=== PATIENT | female | born 1935 | race Caucasian/White ===

== ENCOUNTER 2018-09-12 06:34 | Inpatient (IN) | payer MEDICARE, BC ==
[2018-09-12 07:16] LABS: #Basophils 0.1 thou/uL (0.0-0.2); #Eosinphils 0.3 thou/uL (0.0-0.7); #Monocytes 0.7 thou/uL (0.11-0.59); #Neutrophils 6.9 thou/uL (1.40-6.50); %Basophils 0.7 % (0.0-1.0); %Eosinophils 2.7 % (0.0-10.0); %Lymphocytes 20.1 % (21.0-51.0); %Monocytes 7.3 % (0.0-10.0); %Neutrophils 69.2 % (42.0-75.0); Hemoglobin 14.3 g/dL (12.0-16.0); Mean Corpuscular HGB CONC 33.3 g/dL (32.0-36.0); Mean Corpuscular Hemoglobin 30.6 pg (27.0-31.0); Mean Corpuscular Volume 91.9 fL (78.0-98.0); Mean Platelet Volume 7.8 fL (7.4-10.4); Platelet Count 247 thou/uL (130-400); Red Blood Cell (RBC) Count 4.67 mill/uL (4.20-5.40); White Blood Cell (WBC) Count 9.9 thou/uL (4.8-10.8)
[2018-09-12 07:22] LABS: PTT 29.6 SEC (22.9-36.1); Prothrombin Time 13.6 SEC (12.0-14.7)
[2018-09-12 07:37] LABS: ALT (SGPT) 18 U/L (8-55); AST (SGOT) 17 U/L (5-34); Alkaline Phosphatase 83 U/L (40-150); Anion Gap 9 mmol/L (10-20); BUN (Urea Nitrogen) 20 mg/dL (9.8-20.1); Bilirubin, Total 0.6 mg/dL (0.2-1.2); CK (CPK) 23 U/L (29-168); Calc. Creatinine Clearance 0 mL/min (70-130); Calcium 9.3 mg/dL (7.8-10.44); Carbon Dioxide 28 mmol/L (23-31); Chloride 107 mmol/L (98-107); Estimated GFR-MDRD 77; Globulin 2.6 g/dL (2.4-3.5); Glucose 99 mg/dL (83-110); Potassium 3.7 mmol/L (3.5-5.1); Protein, Total 6.6 g/dL (6.0-8.3); Sodium 140 mmol/L (136-145)
[2018-09-12 07:57] LABS: CKMB 0.8 ng/mL (0-6.6)
[2018-09-12 11:12] VITALS: BMI 30.1
[2018-09-12] MEDS ORDERED: Dextrose 5 % And 0.9 % NaCl 1,000 ML IV SCH (11:15)
[2018-09-12] MEDS ORDERED: Ondansetron ODT 4 MG TAB PO PRN (13:54)
[2018-09-12] MEDS ORDERED: hydrALAZINE 20 MG/ML VIAL SLOW IVP PRN (13:54)
[2018-09-12] MEDS ORDERED: Acetaminophen 500 MG TAB PO PRN (13:54)
[2018-09-12] MEDS ORDERED: Ondansetron PF 4 MG/2 ML Vial IVP PRN (13:54)
[2018-09-12 15:01] LABS: Hemoglobin 13.8 g/dL (12.0-16.0); Platelet Count 230 thou/uL (130-400)
[2018-09-12] MEDS: Sodium Chloride 0.9% 1,000 ML IV SCH (15:16)
[2018-09-12 15:28] LABS: Troponin I 0.089 ng/mL (< 0.028)
[2018-09-12 19:26] LABS: Troponin I 0.095 ng/mL (< 0.028)
[2018-09-12] MEDS ORDERED: GoLYTELY 4,000 ml Bottle PO SCH (20:45)
[2018-09-12] MEDS ORDERED: Escitalopram Oxalate 10 mg Tablet PO SCH (21:00)
[2018-09-12] MEDS ORDERED: Pantoprazole 40 MG VIAL IVP SCH (21:00)
[2018-09-12] MEDS ORDERED: hydrALAZINE 20 MG/ML VIAL SLOW IVP SCH (21:15)
--- NOTE | 2018-09-12 23:16 | HP ---
PRIMARY CARE PROVIDER: Kirk Valencia MD CHIEF COMPLAINT: Blood per rectum. HISTORY OF PRESENT ILLNESS: This is an 82-year-old female who presents to [facility] Emergency Department complaining of bright red blood per rectum when going to the restroom this morning. The patient felt the urge to defecate with gas and bloating and went to the restroom, noting bright red blood in the toilet. The patient denies any specific abdominal pain, fever, chills, left lower quadrant discomfort, or prior similar episodes. The patient does state she has had intermittent difficulty with hemorrhoids and has used Anusol in the past. The patient denied any specific increasing difficulty with hemorrhoids, and states she has been on MiraLAX over the last 4 weeks. The patient denies any specific weight loss, but does admit to some weight gain. The patient is unable to quantify the exact number. The patient denied any recent trauma or injury. The patient does admit that she takes aspirin 81 mg daily in addition to Advil PM, which contains Motrin. The patient denies any other anticoagulant use, prior endoscopy, history of diverticulitis, hematuria, or hemoptysis. The patient states her last oral intake was approximately 24 hours prior to this evaluation. The patient does admit to some associated fatigue over the last several months and ambulates with the use of a cane. In the emergency room, the patient underwent general evaluation with hemoglobin measured at 14. The patient was heme-positive on stool guaiac evaluation. The patient was referred to the hospitalist service for further evaluation. PAST MEDICAL HISTORY: 1. Hypertension. 2. External hemorrhoids. 3. History of congestive heart failure, unknown type. 4. Hypertension. PAST SURGICAL HISTORY: 1. Status post left arm surgery. 2. Status post appendectomy. 3. Status post hysterectomy. CURRENT MEDICATIONS: 1. Enteric-coated aspirin 81 mg p.o. daily. 2. Bisoprolol fumarate 10 mg p.o. daily. 3. Lexapro 10 mg p.o. at bedtime. 4. Advil PM 1 capsule p.o. at bedtime. 5. Ramipril 10 mg p.o. daily. ALLERGIES: TO PENICILLIN AND SULFA. FAMILY HISTORY: Positive for hypertension. SOCIAL HISTORY: The patient resides at [facility], [place]. No current alcohol, tobacco, or illicit drug use. Ambulates with the use of a cane. Accompanied by her daughter in the hospital. REVIEW OF SYSTEMS: CONSTITUTIONAL: Negative for weight loss or gain, ability to conduct usual activities. SKIN: Negative for rash, itching. EYES: Negative for double vision, pain. ENT/MOUTH: Negative for nose bleeding, neck stiffness, pain, tenderness. CARDIOVASCULAR: Negative for palpitations, dyspnea on exertion, orthopnea. RESPIRATORY: Negative for shortness of breath, wheezing, cough, hemoptysis, fever or night sweats. GASTROINTESTINAL: Negative for poor appetite, abdominal pain, heartburn, nausea, vomiting, constipation, or diarrhea. GENITOURINARY: Negative for urgency, frequency, dysuria, nocturia. MUSCULOSKELETAL: Negative for pain, swelling. NEUROLOGIC/PSYCHIATRIC: Negative for anxiety, depression. ALLERGY/IMMUNOLOGIC: Negative for skin rash, bleeding tendency. Otherwise negative except as stated per HPI. PHYSICAL EXAMINATION: VITAL SIGNS: On admission; blood pressure 152/70, pulse 56, respiratory rate 16, temperature 97.6 degrees Fahrenheit, and O2 saturation 96% on room air. GENERAL APPEARANCE: This is an 82-year-old female, alert and oriented x3, pleasant, conversant, in no acute distress. HEENT: Pupils are equal, round, and reactive to light and accommodation. Extraocular muscles are intact. No scleral icterus. No conjunctival injection. Nares patent. OP is clear. Teeth in fair repair. NECK: Supple. No cervical adenopathy. No thyromegaly. No carotid bruits. No JVD appreciated. Cervical spine with full active and passive range of motion. No meningeal signs appreciated. CHEST: Lungs are clear to auscultation bilaterally. CARDIOVASCULAR: S1 and S2 without noted murmur, rub, or gallop. ABDOMEN: Obese, soft, nontender, and nondistended. Bowel sounds are positive in all 4 quadrants. There is no hepatosplenomegaly. No abdominal bruits. No rebound or guarding appreciated. EXTREMITIES: Warm and dry with fair turgor. No clubbing, cyanosis, or asymmetric edema appreciated. Pulses are palpable distally at the dorsalis pedis, posterior tibial, and popliteal arteries bilaterally. Capillary refill less than 2 seconds. NEUROLOGIC: Cranial nerves 2 through 12 are grossly intact. No focal or lateralizing signs appreciated. PERTINENT LAB AND X-RAY FINDINGS: Complete metabolic profile within normal limits. Troponin I 0.103. PT 13.6, INR 1.0, and PTT 29.6. CBC showed a white blood cell count of 9.9, hemoglobin 14, hematocrit 43, and platelet count 247 with 69% neutrophils. Stool Hemoccult positive x1 on 09/12/2018. EKG dated 09/12/2018 by my interpretation shows sinus bradycardia with heart rates in the 50s to 60s. Normal R-wave progression noted in the precordial leads. Normal axis. ASSESSMENT AND PLAN: 1. Hematochezia. The patient will be admitted to the telemetry unit. Exact etiology unclear; however, suspicion for hemorrhoidal source. We will consult Gastroenterology Service for further evaluation and consideration for endoscopy. Hold all anticoagulation and nonsteroidal anti-inflammatory drugs. Continue Protonix 40 mg IV q.12 hours. Continue intravenous normal saline at 100 mL/h. 2. Elevated troponin I. Suspect demand ischemic state. We will trend troponin I q.3 hours x2. No current evidence to suggest acute coronary syndrome. 3. Hypertension. Resume home antihypertensive regimen to include bisoprolol and ramipril. Serial blood pressure monitoring. 4. Depression. Continue Lexapro 10 mg p.o. at bedtime. 5. Prophylaxis. Sequential compression devices while in bed. Protonix 40 mg IV q.12 hours. 6. Code status is full. Surrogate medical decision maker is the patient's daughter. Job ID: [id number]
--- NOTE | 2018-09-13 03:41 | CON ---
DATE OF CONSULTATION: 09/12/2018 REASON FOR CONSULT: Rectal bleeding. HISTORY OF PRESENT ILLNESS: Ms. Lloyd is a pleasant 82-year-old female, who came to the emergency room at about 6 this morning after a couple episodes of rectal bleeding last night. She reports that she sleeps typically up in her chair and had an episode of bright red blood per rectum with no stool. This was quite a bit of volume for her that she noticed in her toilet, it happened at 1:00 a.m. and 3:00 a.m., then it did not recur. She was very nervous as this has not ever happened before. She thought that maybe there was a knot on her bottom that she felt when she was cleaning up the second time. She came to the emergency room to be evaluated. She has had no further bleeding noted. She had one bowel movement here with a scant amount of brown stool and a little bit of discharge, it was reddish. She has a little bit of perianal pain. She has had hemorrhoids in the past, but not bleeding. She denies ever having a colonoscopy. She has had no associated abdominal pain with it. She takes a baby aspirin daily, but no blood thinners. She had some mild shortness of breath and weakness. She was really quite scared about the whole episode. Presently, she is feeling pretty well. Her daughter is at the bedside. PAST MEDICAL HISTORY: Notable for history of congestive heart failure. She was hospitalized at [facility] once. She sees Dr. Kirk Valencia as her primary physician. She denies any other medical problems. She has had some depression issues and she presently lives in assisted living skilled nursing. PAST SURGICAL HISTORY: Notable for left arm surgery after fracture, appendectomy, and hysterectomy. SOCIAL HISTORY: The patient does not drink, smoke, or use drugs. ALLERGIES: NONE KNOWN. MEDICATIONS: At home; 1. Bisoprolol. 2. Ramipril. 3. Escitalopram. 4. Ibuprofen occasionally at bedtime. 5. Aspirin. Present medications here; 1. Tylenol. 2. Bisoprolol. 3. Escitalopram. 4. Hydralazine. 5. Zofran. 6. Protonix 40 IV q.12 hours. 7. Ramipril. 8. Normal saline at 100. PHYSICAL EXAMINATION: VITAL SIGNS: Temperature 97, pulse 86 to 92, blood pressure 184/81. GENERAL: The patient is resting comfortably in bed. She feels a little bit anxious. HEENT: Oropharynx, no lesions. SKIN: [place] and moist. She is alert and oriented to person, place, and time. LUNGS: Clear bilaterally with no rales or rhonchi. HEART: Regular rate and rhythm. ABDOMEN: Soft, nontender with no rebound or guarding. No scars are documented. RECTAL EXAMINATION: Shows some internal hemorrhoids. She has one firm nodule in the rectum. I do not see any external disease. There is no blood on the examining glove. There is no stool in the rectal vault. EXTREMITIES: Reveal no edema. LABORATORY DATA: Hemoglobin is 14.3 on admission and 13.8 at 1400 hours, white count 9.9, and platelet count 247. INR 1. Basic metabolic profile was normal. CK was 23. Troponin was 0.1 to 0.09. ASSESSMENT: Rectal bleeding, likely internal hemorrhoid. She has not had a colonoscopy ever. She has a firm lesion just inside the rectum, which is about a centimeter in size and this could be a thrombosed hemorrhoid. I cannot see it. I have offered the patient 3 choices; conservative therapy with stool softener and steroid, sigmoidoscopy, anoscopy/sigmoidoscopy or colonoscopy. She has not had a colonoscopy in the past. I talked with her and her daughter that we are going to proceed with a full colonoscopy tomorrow. If not, we can at least evaluate the perirectal area and lower sigmoid for what I suspect is a source of bleeding. Risks, benefits, and possible complications were discussed with the patient and she wished to proceed. Job ID: [id number]
[2018-09-13] MEDS: Sodium Chloride 0.9% 1,000 ML IV SCH ×2 (03:57→11:44)
[2018-09-13 05:42] LABS: Anion Gap 11 mmol/L (10-20); BUN (Urea Nitrogen) 10 mg/dL (9.8-20.1); Calc. Creatinine Clearance 79 mL/min (70-130); Carbon Dioxide 26 mmol/L (23-31); Chloride 108 mmol/L (98-107); Estimated GFR-MDRD 84; Glucose 91 mg/dL (83-110); Potassium 4.1 mmol/L (3.5-5.1); Sodium 141 mmol/L (136-145)
[2018-09-13 06:10] LABS: Hemoglobin 13.3 g/dL (12.0-16.0); Mean Corpuscular HGB CONC 32.6 g/dL (32.0-36.0); Mean Corpuscular Volume 91.9 fL (78.0-98.0); Mean Platelet Volume 8.1 fL (7.4-10.4); Platelet Count 221 thou/uL (130-400); Red Blood Cell (RBC) Count 4.45 mill/uL (4.20-5.40); White Blood Cell (WBC) Count 8.5 thou/uL (4.8-10.8)
[2018-09-13 06:11] LABS: Band 1 % (5-11); Eosinophils 3 % (0-10); Lymphocytes 25 % (21-51); MDiff Complete? YES; Monocytes 3 % (0-10); Myelocyte 1 % (0-0); Neutrophil 66 % (42-75); Reactive Lymphocytes 1 % (0-10)
[2018-09-13] MEDS ORDERED: Bisoprolol Fumarate 5 MG TAB PO SCH (09:00)
[2018-09-13] MEDS ORDERED: Ramipril 5 MG CAP PO SCH (09:00)
[2018-09-13] MEDS ORDERED: Promethazine HCl 25 MG/ML VIAL IM PRN (12:07)
[2018-09-13] MEDS ORDERED: Ondansetron HCl/PF 4 MG/2 ML Vial IVP PRN (12:07)
[2018-09-13] MEDS ORDERED: Promethazine HCl 25 MG/ML VIAL SLOW IVP PRN (12:07)
[2018-09-13 14:37] VITALS: BP 162/76; TEMP 97.8
--- NOTE | 2018-09-13 15:13 | OP ---
DATE OF PROCEDURE: 09/13/2018 PROCEDURE: Colonoscopy with snare polypectomy. PREMEDICATIONS: Given by Anesthesiology Department. PREPROCEDURE DIAGNOSIS: Rectal bleeding/hematochezia. POSTPROCEDURE DIAGNOSES: 1. Grade 1 small internal hemorrhoids and medium external hemorrhoids, source of rectal bleeding. 2. Sigmoid diverticulosis. 3. Sigmoid polyp, status post polypectomy. PROCEDURE IN DETAIL: Written consents were obtained prior to procedure. After adequate sedation, rectal exam performed that showed medium-sized/non-thrombosed external hemorrhoids. The endoscope was advanced to the cecum. The quality of the bowel prep was fair. The cecum, ascending colon, hepatic flexure, transverse colon, splenic flexure, and descending colon appeared normal. Scattered diverticula were noted in the sigmoid colon. No stigmata of recent bleeding. The rectal vault appeared normal. Retroflexion showed small grade 1 internal hemorrhoids. No rectal mass lesion was seen. There was no obvious anal fissure. ASSESSMENT: 1. Medium external hemorrhoids and small internal hemorrhoids, source of rectal bleeding. 2. Sigmoid diverticulosis coli. 3. Sigmoid polyp, status post polypectomy. RECOMMENDATIONS: 1. Conservative therapy with fiber supplement. 2. Await biopsy results, follow up. 3. The patient can be discharged to home from GI standpoint. Job ID: [id number]
--- NOTE | 2018-09-13 15:53 | EKG ---
Test Reason : Blood Pressure : / mmHG Vent. Rate : 057 BPM Atrial Rate : 057 BPM P-R Int : 170 ms QRS Dur : 072 ms QT Int : 428 ms P-R-T Axes : 000 -08 007 degrees QTc Int : 416 ms Sinus bradycardia Otherwise normal ECG Confirmed by MARICEL FLORES ([id number]), acquisition editor RONNI BARFIELD ([id number]) on 09/13/2018 3:53:15 PM Referred By: Confirmed By:MARICEL FLORES
--- NOTE | 2018-09-14 07:11 | DIS ---
DATE OF ADMISSION: 09/12/2018 DATE OF DISCHARGE: 09/13/2018 DISCHARGE DIAGNOSES: 1. Gastrointestinal bleed, secondary to internal hemorrhoids and polyp. 2. Acute blood loss anemia, mild, stable. 3. Elevated troponin I, secondary to demand ischemia, stable. 4. Hypertension, stable. 5. Depression, stable. CONSULTATION: Dr. White and Dr. Shaikh with GI Service. PERTINENT LAB AND X-RAY FINDINGS: Hemoglobin ranged between 13.3 to 14.3, MCV 92. PT 13.6, INR 1.0, PTT 29.6. Troponin I ranged between 0.089 to 0.103. Stool Hemoccult positive x1 on 09/12/2018. HOSPITAL COURSE: The patient was admitted to the telemetry unit after initially presenting with hematochezia. The patient underwent general evaluation including initiation of IV fluids and Protonix. The patient was evaluated by the GI Service, undergoing colonoscopy exam with evidence of internal hemorrhoids and colon polyp. The patient underwent a polypectomy during the exam without complication. Serial H and H evaluation during the hospital course showed stable values and the patient did not require any blood products. Current recommendations are for stool softeners and Anusol HC per rectum. Overall, the patient did remain clinically stable through the remainder of the hospital course. I have examined the patient at the time of discharge and discussed followup instructions. The patient overall is clinically stable and ready for discharge on 09/13/2018. DISCHARGE MEDICATIONS: 1. Bisoprolol fumarate 10 mg p.o. daily. 2. Lexapro 10 mg p.o. at bedtime. 3. Ramipril 10 mg p.o. daily. 4. Enteric-coated aspirin 81 mg p.o. q48 hours. 5. Colace 100 mg p.o. daily. 6. Anusol HC 25 mg per rectum b.i.d. FOLLOWUP: The patient may follow up with her primary care provider, Dr. Kirk Valencia within 7 days of discharge. CONDITION ON DISCHARGE: Stable. ACTIVITY: Ad-saturnino. DIET: Regular. CODE STATUS: Full. DISPOSITION: Home on 09/13/2018. Job ID: [id number] MTDD
== END 2018-09-13 15:18 | disposition home or self-care (01) | DRG 394 ==
LOC: ERS 06:34 → 2NO 09:01
PROVIDERS: ADMIT Internal Medicine; ATTEND Internal Medicine
PROC: 0DBN8ZX Excision of Sigmoid Colon, Via Natural or Artificial Opening Endoscopic, Diagnostic (ICD-10-PCS; principal; 2018-09-13)
DX: K64.0 First degree hemorrhoids (principal); D62 Acute posthemorrhagic anemia; I24.8 Other forms of acute ischemic heart disease; Z79.82 Long term (current) use of aspirin; K64.4 Residual hemorrhoidal skin tags; I11.0 Hypertensive heart disease with heart failure; I50.9 Heart failure, unspecified; Z88.0 Allergy status to penicillin; Z88.2 Allergy status to sulfonamides; F32.9 Major depressive disorder, single episode, unspecified; Z79.01 Long term (current) use of anticoagulants; K57.30 Diverticulosis of large intestine without perforation or abscess without bleeding; K63.5 Polyp of colon
CPT/HCPCS: 36415; 80048; 80053; 82274; 82550; 82553; 84484; 85007; 85025; 85027; 85610; 85730; 86850; 86900; 86901; 88305; 93005; C9113; J0360

== ENCOUNTER 2019-06-01 14:16 | Inpatient (IN) | payer MEDICARE, BC ==
[~2019-06-01 14:16] MED LIST: ISOVUE-370 76%-LOCM 1 ML ONE
[2019-06-01 15:10] LABS: #Eosinphils 0.1 thou/uL (0.0-0.7); #Lymphocytes 1.3 thou/uL (1.20-3.40); #Monocytes 0.6 thou/uL (0.11-0.59); #Neutrophils 7.2 thou/uL (1.40-6.50); %Basophils 0.3 % (0.0-1.0); %Eosinophils 1.2 % (0.0-10.0); %Lymphocytes 13.7 % (21.0-51.0); %Monocytes 6.8 % (0.0-10.0); %Neutrophils 78.1 % (42.0-75.0); Hemoglobin 14.7 g/dL (12.0-16.0); Mean Corpuscular HGB CONC 34.2 g/dL (32.0-36.0); Mean Corpuscular Hemoglobin 31.3 pg (27.0-31.0); Mean Corpuscular Volume 91.5 fL (78.0-98.0); Mean Platelet Volume 7.5 fL (7.4-10.4); Platelet Count 205 thou/uL (130-400); RBC Distribution Width 12.4 % (11.5-14.5); Red Blood Cell (RBC) Count 4.68 mill/uL (4.20-5.40); White Blood Cell (WBC) Count 9.2 thou/uL (4.8-10.8)
[2019-06-01] MEDS ORDERED: Fentanyl 100 MCG/2 ML VIAL ONE ×2 (15:12→16:18)
[2019-06-01 15:35] LABS: ALT (SGPT) 30 U/L (8-55); AST (SGOT) 24 U/L (5-34); Alkaline Phosphatase 83 U/L (40-150); Anion Gap 14 mmol/L (10-20); BUN (Urea Nitrogen) 22 mg/dL (9.8-20.1); Bilirubin, Total 0.5 mg/dL (0.2-1.2); Calc. Creatinine Clearance 0 mL/min (70-130); Calcium 9.1 mg/dL (7.8-10.44); Carbon Dioxide 23 mmol/L (23-31); Chloride 105 mmol/L (98-107); Estimated GFR-MDRD 72; Globulin 2.4 g/dL (2.4-3.5); Glucose 99 mg/dL (83-110); Potassium 4.3 mmol/L (3.5-5.1); Protein, Total 6.4 g/dL (6.0-8.3); Sodium 138 mmol/L (136-145)
--- NOTE | 2019-06-01 15:46 | RAD ---
EXAM: Right knee 4 views: HISTORY: Injury from a fall COMPARISON: None FINDINGS: Bony demineralization. Superficial soft tissue prepatellar soft tissue swelling evidence for soft tissue injury. No joint effusion. Degenerative changes. No acute fracture or dislocation or other significant acute osseous abnormality. IMPRESSION: Anterior superficial prepatellar soft tissue swelling evidence for soft tissue injury. Degenerative c hanges without acute fracture or dislocation.
--- NOTE | 2019-06-01 16:16 | CT ---
CT Brain WO Con: 06/01/2019 2:58 PM CLINICAL HISTORY: Dizziness and fall. IMAGING TECHNIQUE: Multiple CT images were obtained of the brain without IV contrast. COMPARISON: None. FINDINGS: Infarct: No acute infarct evident. Hemorrhage: None.. Hydrocephalus: None.. Basal cisterns: Normal.. Cerebral parenchyma: There is mild generalized cerebral cerebral atrophy with mild chronic small vess el white matter ischemic change.. Midline shift: None.. Cerebellum: Normal. Brainstem: Normal. OTHER: Calvarium: Intact.. Visualized Paranasal sinuses: Clear.. Extracranial soft tissues:Normal. IMPRESSION: No acute intracranial abnormality.
--- NOTE | 2019-06-01 16:20 | CT ---
CT Cervical Spine WO Con Indication: Dizziness and fall with right arm and right hip pain COMPARISON: None. FINDINGS: Acute fracture/subluxation: There is a subendplate sclerosis and mild endplate compression deformity involving the superior aspect of T2 is suspicious for a healing superior endplate compression fracture of undetermined age. No additional acute abnormality is evident. There is diffuse osteopenia . Spinal alignment: No acute malalignment. Craniocervical junction: Within normal limits. Vertebral body heights: Maintained. Cervical spine degenerative change: None of significance. Lung apices: Clear. IMPRESSION: Age-indeterminate mild superior endplate compression fracture of T2. There is mild some endplate scle rosis involving the superior aspect T2 indicative of some healing. No additional acute osseous abnormality demonstrated.
--- NOTE | 2019-06-01 16:24 | CT ---
CT OF THE ABDOMEN AND PELVIS WITH IV CONTRAST INDICATION: Fall and dizziness with right hip pain and right arm pain COMPARISON: None FINDINGS: ABDOMEN: Lung bases: Mild bibasilar atelectasis Liver: There is a subcentimeter hypodensity within segment 6 of the hepatic lobe suspicious for tiny cyst. Gallbladder: Normal appearing. Pancreas: Normal. Adrenal glands: Normal. Spleen: Normal. Kidneys: Normal. Retroperitoneum of the upper abdomen: No lymphadenopathy or free fluid is identified. Pelvis: Small and large bowel: Normal Bladder: Normal. Rectal and perirectal soft tissues:Normal. Reproductive structures: Surgically absent Free fluid in pelvis: No free fluid is evident. Lymphadenopathy pelvis: No lymphadenopathy is evident. Osseous structures: There is diffuse osteopenia. There is an age-indeterminate superior endplate comp ression fracture of L2. There is also a inferior endplate compression fracture of T12 of undetermined chronicity. There is scattered degenerative and osteoarthritic changes. There is a large soft tissue hematoma overlying the right hip measuring 8.4 x 7.7 cm. IMPRESSION: 1. Age-indeterminate T12 and L2 compression fractures. 2. Large soft tissue hematoma superior and lateral to the right hip 3. Nonspecific subcentimeter hypodensity within the right hepatic lobe.
[2019-06-01 18:51] LABS: Troponin I 0.017 ng/mL (< 0.028)
[2019-06-01 18:57] LABS: Bilirubin Negative (Negative); Blood, Urine Negative (Negative); Clarity Clear (Clear); Glucose, Urine (Dipstick) 100 mg/dL (Negative); Leukocyte Negative Leu/uL (Negative); Nitrite Negative (Negative); Protein, Urine (Dipstick) Negative (Neg-Trace); Urobilinogen Normal mg/dL (Less than 2)
--- NOTE | 2019-06-01 21:32 | RAD ---
RIGHT SHOULDER THREE VIEWS: 06/01/19 HISTORY: Fall, right shoulder pain. FINDINGS/IMPRESSION: There are degenerative changes in the acromioclavicular and glenohumeral joints. No acute fracture or dislocation identified. POS: BARBARA
[2019-06-01] MEDS ORDERED: Acetaminophen 325 MG TAB ONE (21:35)
[2019-06-01 22:24] LABS: Troponin I Less than 0.010 ng/mL (< 0.028)
[2019-06-01] MEDS ORDERED: Ondansetron ODT 4 MG TAB SL PRN (22:29)
[2019-06-01] MEDS ORDERED: Ondansetron PF 4 MG/2 ML Vial IVP PRN ×2 (22:29→23:41)
[2019-06-01] MEDS ORDERED: Acetaminophen 325 MG TAB PO PRN (22:29)
[2019-06-01 23:28] VITALS: BMI 31.2
[2019-06-01] MEDS ORDERED: Ondansetron ODT 4 MG TAB PO PRN (23:41)
[2019-06-01] MEDS ORDERED: traMADol HCl 50 MG TAB PO PRN (23:41)
--- NOTE | 2019-06-02 03:15 | HP ---
PRIMARY CARE PHYSICIAN: Dr. Valencia. CHIEF COMPLAINT: "I fell." HISTORY OF PRESENT ILLNESS: Ms. Lloyd is a very pleasant 83-year-old female who has a history of hypertension as well as congestive heart failure. She lives independently at the [facility]. She says that she was feeling well earlier today and was basically freshening up her house. She says she was spraying some [place] spray and was planning on getting ready to take a shower when suddenly she fell. She says when she had fallen onto the floor, she could not say anything. She felt like she should be able to have called out for help, but the words did not come, but then a few seconds later, she was able to regain her ability to find words. She says that she fell pretty hard on her right side, hit the right side of her head on the counter, and then had to shuffle her bottom to get to the phone. She called her daughter and was brought to the hospital for evaluation. In the ER, she had a CT scan of the brain, which was negative and also CT scan of the C-spine where they discovered that she had a as well as L2 compression fractures. It is reported that she was evaluated by Neurosurgery in the ER and there was no need for surgery and she is being placed in observation. The patient says that prior to the fall, she did not have any dizziness. She did not have any chest pain. There was no weakness in either arm or leg prior to the fall. Her daughter who is at the bedside says that she had an episode about a week ago where she had gotten up in the middle of the night to go to the bathroom. At that time, she felt a little bit dizzy and she fell. The patient says that she has a problem with her inner ear and had to have some type of surgery and was told that she was always going to have problems with dizziness and balance problems. REVIEW OF SYSTEMS: CONSTITUTIONAL: No fevers or chills. No night sweats. No weight loss. HEENT: She denies any headaches. No dizziness. No visual changes. No sore throat or rhinorrhea. NECK: No neck pain. No adenopathy. PULMONARY: No hemoptysis. No cough. No wheezing. CARDIOVASCULAR: She denies any chest pain. No shortness of breath. No PND. No orthopnea. She does have an occasional lower extremity edema. No palpitations. GASTROINTESTINAL: No abdominal pain. No nausea. No vomiting. No change in bowels. GENITOURINARY: No urinary frequency or hematuria. No hesitancy. NEUROLOGIC: No focal weakness or numbness. No seizures. PSYCHIATRIC: No symptoms of anxiety or depression. SKIN AND INTEGUMENT: No skin changes. No rash. PAST MEDICAL HISTORY: Significant for hypertension, congestive heart failure, chronic hearing loss, and recent intestinal bleeding after removal of a polyp. PAST SURGICAL HISTORY: She has had left arm surgery, appendectomy, and hysterectomy. ALLERGIES: PENICILLIN AND SULFA. SOCIAL HISTORY: She is a nonsmoker and nondrinker. She is . She lives independently at [facility]. She has 2 children and her daughter, Jovanna Bocanegra, is her surrogate decision maker. FAMILY HISTORY: No history of any heritable diseases. CODE STATUS: DNAR. CURRENT MEDICATIONS: Her medicines will need to be reconciled. PHYSICAL EXAMINATION: GENERAL: She is alert and oriented. She appears to be in no acute distress. She is well developed and well nourished. VITAL SIGNS: Blood pressure was 130/63, heart rate 73, respiratory rate is 16, temperature is 97.6. HEENT: Pupils are equal, round, and reactive. Extraocular muscles are intact. Her sclerae anicteric. Throat, no erythema, no exudates. NECK: No adenopathy. No bruits. LUNGS: Clear to auscultation. There is no wheezing, no rales, no rhonchi. CARDIOVASCULAR: She has a normal S1 and S2. There is no S3 or S4. No murmurs, clicks, or rubs. ABDOMEN: Obese. It is soft, nontender, and nondistended. Positive for bowel sounds. There is no rebound, no guarding, no organomegaly. EXTREMITIES: She has some mild nonpitting edema. No significant joint effusions. NEUROLOGIC: Cranial nerves II through XII are grossly intact. Her muscle strength is 5/5 in both upper and lower extremities. SKIN AND INTEGUMENT: No significant skin changes. No rashes. LAB RESULTS: White blood cell count is 9.2, hemoglobin 14.7, hematocrit is 42.8, and platelet count is 205. Sodium 138, potassium 4.3, chloride is 105, CO2 is 23, BUN of 22, creatinine 0.76, glucose is 99. Troponin is less than 0.010. Urinalysis is positive for glucose. She had a CT scan of the brain, which was negative for any acute intracranial process. She had a CT scan of the abdomen and pelvis showing as well as L2 compression fracture and a large hematoma of her thigh. EKG, this is by my reading, was a sinus rhythm, rate was 77. She had a Q-wave in III and aVF. C-spine showed the T2 fracture and some DJD. ASSESSMENT: 1. This is a pleasant 83-year-old female who presents after having a fall from a standing position. It appears as if she may have had a syncopal episode. There was no dizziness prior to the event and it appears as if she had already been standing for a while prior to the fall. She will be placed in observation. We will get an echocardiogram and carotid Dopplers. Continue to monitor her on telemetry. 2. Vertebral fractures. These are nonsurgical and will be treated conservatively. She has already received the back brace and we will continue pain control and PT and OT as tolerated. 3. Hypertension. We will need to reconcile and restart her medications as appropriate. 4. Chronic heart failure. The echo will help us determine her EF and further recommendations to follow. Currently, the heart failure appears to be compensated. Job ID: [id number]
[2019-06-02 05:28] LABS: #Eosinphils 0.1 thou/uL (0.0-0.7); #Lymphocytes 1.8 thou/uL (1.20-3.40); #Monocytes 0.8 thou/uL (0.11-0.59); #Neutrophils 5.7 thou/uL (1.40-6.50); %Basophils 0.5 % (0.0-1.0); %Eosinophils 0.7 % (0.0-10.0); %Lymphocytes 21.9 % (21.0-51.0); %Monocytes 9.2 % (0.0-10.0); %Neutrophils 67.7 % (42.0-75.0); Hemoglobin 12.1 g/dL (12.0-16.0); Mean Corpuscular HGB CONC 32.8 g/dL (32.0-36.0); Mean Corpuscular Hemoglobin 30.7 pg (27.0-31.0); Mean Corpuscular Volume 93.7 fL (78.0-98.0); Mean Platelet Volume 7.7 fL (7.4-10.4); Platelet Count 215 thou/uL (130-400); RBC Distribution Width 12.6 % (11.5-14.5); Red Blood Cell (RBC) Count 3.93 mill/uL (4.20-5.40); White Blood Cell (WBC) Count 8.4 thou/uL (4.8-10.8)
[2019-06-02 05:52] LABS: Anion Gap 12 mmol/L (10-20); BUN (Urea Nitrogen) 20 mg/dL (9.8-20.1); Calc. Creatinine Clearance 73 mL/min (70-130); Calcium 8.7 mg/dL (7.8-10.44); Carbon Dioxide 24 mmol/L (23-31); Cardiac Risk 6.6 (Less than 4.5); Chloride 106 mmol/L (98-107); Cholesterol 218 mg/dl (< 200 Desired); Estimated GFR-MDRD 78; Glucose 106 mg/dL (83-110); HDL Cholesterol 33 mg/dL (>60 Neg Risk); LDL Cholesterol, Calculated 166 mg/dL; Sodium 138 mmol/L (136-145); Triglycerides 97 mg/dL (Less than 150)
[2019-06-02] MEDS: Levothyroxine Sodium 25 MCG TAB PO SCH (06:53)
[2019-06-02] MEDS: Escitalopram Oxalate 10 mg Tablet PO SCH (08:13)
[2019-06-02] MEDS: Aspirin 81 mg Enteric Coated Tablet PO SCH (08:13)
[2019-06-02] MEDS: Ramipril 5 MG CAP PO SCH (08:14)
[2019-06-02] MEDS: Famotidine 20 MG TAB PO SCH ×2 (08:14→21:30)
[2019-06-02] MEDS: Enoxaparin Sodium 40 MG/0.4 ML SYRINGE SC SCH (08:18)
--- NOTE | 2019-06-02 09:20 | ULT ---
EXAM: Carotid vascular duplex with color and spectral Doppler imaging: HISTORY: TIA COMPARISON: None FINDINGS: Visible plaque in distal CCAs and proximal ICAs. Right ICA: PSV: 96 cm/s EDV: 23 cm/s ICA/CCA ratio: 1.4 Left ICA: PSV: 79 cm/s EDV: 17 cm/s ICA/CCA ratio: 0.8 Antegrade flow is seen in both vertebral arteries.. IMPRESSION: No evidence for hemodynamically significant ICA stenosis Atherosclerotic carotid vascular disease.
[2019-06-02] MEDS ORDERED: traMADol HCl 50 MG TAB PO PRN (11:44)
[2019-06-02] MEDS: HYDROcodone/Acetaminophen 5/325 mg Tablet PO PRN ×2 (12:11→18:14)
--- NOTE | 2019-06-02 15:58 | PDOC.HOSPP ---
- Subjective Subjective: Seen and examined. Patient with low back pain. Bruising and abrasions across body s/p fall. Breathing well. Has not gotten out of bed yet or worked with PT/ OT. - Objective Vital Signs & Weight: Vital Signs (12 hours) Temp Pulse Resp BP BP Pulse Ox 06/02/19 11:54 97.6 F 82 18 147/72 H 95 06/02/19 08:24 98.1 F 67 18 157/72 H 94 L 06/02/19 08:14 157/72 H 06/02/19 04:00 97.7 F 69 18 132/66 95 Weight Weight 176 lb 8 oz I&O: 06/01/19 06/02/19 06/03/19 06:59 06:59 06:59 Intake Total 10 Output Total 500 Balance -500 10 Result Diagrams: 06/02/19 05:01 06/02/19 05:01 Radiology Reviewed by me: Yes (CT scan ) Hospitalist ROS - Medication Medications: Active Medications Generic Name Dose Route Start Last Admin Trade Name Freq PRN Reason Stop Dose Admin Hydrocodone Bitart/Acetaminophen 1 tab 06/02/19 11:45 06/02/19 12:11 [place] 5/325 PO 1 tab Q4H PRN Administration Moderate to Severe Pain (6-10) Aspirin 81 mg 06/02/19 09:00 06/02/19 08:13 Ecotrin PO 81 mg QAM JERO Administration Enoxaparin Sodium 40 mg 06/02/19 09:00 06/02/19 08:18 Lovenox SC 40 mg 0900 JERO Administration Escitalopram Oxalate 10 mg 06/02/19 09:00 06/02/19 08:13 Lexapro PO 10 mg QAM JERO Administration Famotidine 20 mg 06/02/19 09:00 06/02/19 08:14 Pepcid PO 20 mg BID JERO Administration Levothyroxine Sodium 25 mcg 06/02/19 06:00 06/02/19 06:53 Synthroid PO 25 mcg 0600 JERO Administration Ramipril 10 mg 06/02/19 09:00 06/02/19 08:14 Altace PO 10 mg DAILY JERO Administration - Exam General Appearance: NAD, awake alert Eye: PERRL, anicteric sclera ENT: moist mucosa Neck: supple, symmetric Heart: RRR, no murmur, no gallops, no rubs Respiratory: CTAB, no wheezes, no rales, no ronchi Gastrointestinal: soft, non-tender, non-distended, no guarding, no rigidity Extremities: no edema Skin - other findings: Abraisions to right arm and right scalp, no lacerations Neurological: CN's grossly intact, normal sensation to touch, no weakness, no focal deficits Musculoskeletal: normal tone, normal strength Psychiatric: normal affect, A&O x 3 Hosp A/P (1) Fall (on) (from) other stairs and steps, initial encounter Code(s): W10.8XXA - FALL (ON) (FROM) OTHER STAIRS AND STEPS, INITIAL ENCOUNTER Status: Acute (2) Thoracic compression fracture Code(s): S22.000A - WEDGE COMPRESSION FRACTURE OF UNSP THORACIC VERTEBRA, INIT Status: Acute (3) Back pain Code(s): M54.9 - DORSALGIA, UNSPECIFIED Status: Acute (4) Skin abrasion Code(s): T14.8XXA - OTHER INJURY OF UNSPECIFIED BODY REGION, INITIAL ENCOUNTER Status: Acute (5) Lumbar compression fracture Code(s): S32.000A - WEDGE COMPRESSION FRACTURE OF UNSP LUMBAR VERTEBRA, INIT Status: Acute (6) Dizzy Code(s): R42 - DIZZINESS AND GIDDINESS Status: Chronic (7) HTN (hypertension) Code(s): I10 - ESSENTIAL (PRIMARY) HYPERTENSION Status: Acute - Plan Plan: Neurosurgery consult, recommendations appreciated No surgical intervention required per surgery MRI ordered to further eval fall and dizziness, though metal cochlear implant may not be compatible per Radiology PT/ OT eval and treat May benefit form rehab Pain control Continue home meds as able GI and DVT PPX
--- NOTE | 2019-06-02 20:47 | CON ---
DATE OF CONSULTATION: This is Garrick Mane PA-C dictating a report for Yobani Denton MD. This is a 50-minute initial patient evaluation of which greater than 50% of the exam was spent in counseling and coordinating the patient's care. Remainder of the exam was spent in review of patient's medical records and formulation of treatment plan and review of appropriate imaging studies. CHIEF COMPLAINT: Status post syncopal fall and dizziness with low back pain. HISTORY OF PRESENT ILLNESS: Ms. Lloyd is an 83-year-old female who was admitted to [facility] for the above complaints. 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 She also states that at that time, a cochlear implant was placed. Nonetheless, this has left her with balance difficulties over the past several years. The patient states, however, she typically notices when she is getting dizzy, and can catch herself from falling, though yesterday was not feeling her normal state of dizziness and then ended up falling. She has some back pain with movement, but otherwise has no leg pain other than right knee pain as she fell on her right knee. She has no neck pain. Review of the patient's spinal imaging shows what appears to be a remote T2 compression fracture and very mild compression fracture at L2. There is no malalignment of these fractures and no significant central canal stenosis. PHYSICAL EXAMINATION: The patient is awake, alert, and appropriate. GCS is 15. She has good strength in all the extremities. She has a large bruise on her right knee. She follows commands equally in all 4 extremities and again has good strength. Felipe is negative bilaterally. There is no tenderness to palpation of the cervical spine. IMPRESSION AND DIAGNOSIS: Status post fall, likely syncopal episode with back pain. PLAN: At this time from a neurosurgical perspective, the patient does not require any type of neurosurgery. I have discussed the patient's case and imaging with Dr. Jeffers. I have also updated the patient and her family at bedside that she does not require neurosurgical intervention in regard to surgery. We would however like her to wear her clamshell TLSO brace anytime she is out of bed. We will plan for a followup in the next 2 to 4 weeks with upright thoracic and lumbar x-rays. Please call with any changes of the patient's neurologic status, otherwise Neurosurgery will sign off and will plan for outpatient followup. Job ID: [id number]
[2019-06-02] MEDS: diphenhydrAMINE 25 MG CAP PO PRN (21:30)
[2019-06-03] MEDS: Levothyroxine Sodium 25 MCG TAB PO SCH (06:19)
[2019-06-03] MEDS: Ramipril 5 MG CAP PO SCH (08:25)
[2019-06-03] MEDS: Escitalopram Oxalate 10 mg Tablet PO SCH (08:26)
[2019-06-03] MEDS: Famotidine 20 MG TAB PO SCH ×2 (08:26→20:48)
[2019-06-03] MEDS: Aspirin 81 mg Enteric Coated Tablet PO SCH (08:26)
[2019-06-03] MEDS: Enoxaparin Sodium 40 MG/0.4 ML SYRINGE SC SCH (08:27)
[2019-06-03] MEDS: HYDROcodone/Acetaminophen 5/325 mg Tablet PO PRN ×2 (08:27→13:18)
--- NOTE | 2019-06-03 12:23 | PDOC.HOSPP ---
- Subjective Subjective: Seen and examined. Pain better controlled. Still with expected pain with movement. Was able to work with PT/OT. Slept well. No new complaints. Refused MRI brain, also unclear if cochlear implant is MRI compatible. - Objective Vital Signs & Weight: Vital Signs (12 hours) Temp Pulse Resp BP BP BP Pulse Ox 06/03/19 08:25 151/67 H 06/03/19 08:20 96.8 F L 86 16 151/67 H 97 06/03/19 03:10 97.6 F 82 16 153/69 H 98 Weight Weight 176 lb 8 oz I&O: 06/02/19 06/03/19 06/04/19 06:59 06:59 06:59 Intake Total 1210 480 Output Total 500 550 Balance -500 660 480 Result Diagrams: 06/02/19 05:01 06/02/19 05:01 Hospitalist ROS - Medication Medications: Active Medications Generic Name Dose Route Start Last Admin Trade Name Freq PRN Reason Stop Dose Admin Hydrocodone Bitart/Acetaminophen 1 tab 06/02/19 11:45 06/03/19 08:27 [place] 5/325 PO 1 tab Q4H PRN Administration Moderate to Severe Pain (6-10) Aspirin 81 mg 06/02/19 09:00 06/03/19 08:26 Ecotrin PO 81 mg QAM JERO Administration Diphenhydramine HCl 25 mg 06/01/19 23:41 06/02/19 21:30 Benadryl PO 25 mg Q4H PRN Administration Itching & Hives (mild) Enoxaparin Sodium 40 mg 06/02/19 09:00 06/03/19 08:27 Lovenox SC 40 mg 0900 JERO Administration Escitalopram Oxalate 10 mg 06/02/19 09:00 06/03/19 08:26 Lexapro PO 10 mg QAM JERO Administration Famotidine 20 mg 06/02/19 09:00 06/03/19 08:26 Pepcid PO 20 mg BID JERO Administration Levothyroxine Sodium 25 mcg 06/02/19 06:00 06/03/19 06:19 Synthroid PO 25 mcg 0600 JERO Administration Ramipril 10 mg 06/02/19 09:00 06/03/19 08:25 Altace PO 10 mg DAILY JERO Administration Sodium Chloride 10 ml 06/01/19 23:41 06/03/19 08:29 Flush - Normal Saline IVF 10 ml PRN PRN Administration Saline Flush - Exam General Appearance: awake alert Eye: PERRL Eye - other findings: EOMI ENT: no oropharyngeal lesions, moist mucosa ENT - other findings: Right scalp abraision healing Neck: supple, symmetric Heart: no murmur, no gallops, no rubs Heart - other findings: S1 and S2 present Respiratory: CTAB, no wheezes, no rales, no ronchi Gastrointestinal: soft, non-tender, non-distended, no guarding, no rigidity Extremities: no edema Skin: no lesions, no rashes Neurological: CN's grossly intact, normal sensation to touch, no focal deficits Musculoskeletal: normal strength, no muscle wasting Psychiatric: normal affect, A&O x 3 Hosp A/P (1) Fall (on) (from) other stairs and steps, initial encounter Code(s): W10.8XXA - FALL (ON) (FROM) OTHER STAIRS AND STEPS, INITIAL ENCOUNTER Status: Acute (2) Thoracic compression fracture Code(s): S22.000A - WEDGE COMPRESSION FRACTURE OF UNSP THORACIC VERTEBRA, INIT Status: Acute (3) Back pain Code(s): M54.9 - DORSALGIA, UNSPECIFIED Status: Acute (4) Skin abrasion Code(s): T14.8XXA - OTHER INJURY OF UNSPECIFIED BODY REGION, INITIAL ENCOUNTER Status: Acute (5) Lumbar compression fracture Code(s): S32.000A - WEDGE COMPRESSION FRACTURE OF UNSP LUMBAR VERTEBRA, INIT Status: Acute (6) Dizzy Code(s): R42 - DIZZINESS AND GIDDINESS Status: Chronic (7) HTN (hypertension) Code(s): I10 - ESSENTIAL (PRIMARY) HYPERTENSION Status: Acute - Plan Plan: Neurosurgery consult, recommendations appreciated No surgical intervention required per surgery Refused MRI brain, also unclear if cochlear implant is compatible PT/ OT eval and treat May benefit form rehab Pain better controlled Continue home meds as able Metabolic work up is benign GI and DVT PPX
[2019-06-03] MEDS ORDERED: Polyethylene Glycol 3350 17 GM Packet PO PRN (17:28)
[2019-06-03] MEDS: diphenhydrAMINE 25 MG CAP PO PRN (20:48)
[2019-06-03] MEDS: Acetaminophen 325 MG TAB PO PRN (20:48)
[2019-06-04] MEDS: Levothyroxine Sodium 25 MCG TAB PO SCH (05:42)
[2019-06-04] MEDS: Famotidine 20 MG TAB PO SCH ×2 (08:45→20:44)
[2019-06-04] MEDS: Ramipril 5 MG CAP PO SCH (08:45)
[2019-06-04] MEDS: Escitalopram Oxalate 10 mg Tablet PO SCH (08:45)
[2019-06-04] MEDS: Enoxaparin Sodium 40 MG/0.4 ML SYRINGE SC SCH (08:45)
[2019-06-04] MEDS: Aspirin 81 mg Enteric Coated Tablet PO SCH (08:45)
--- NOTE | 2019-06-04 10:28 | PDOC.HOSPP ---
- Subjective Subjective: Seen and examined. Sitting up in chair eating breakfast. Has TLSO brace on and patient states she feels "stiff". Pain better controlled. Patient slept well. Breathing well. No new complaints. Patient optimistic about rehab. - Objective Vital Signs & Weight: Vital Signs (12 hours) Temp Pulse Resp BP Pulse Ox 06/04/19 08:45 97 06/04/19 07:14 97.4 F L 71 20 148/63 H 97 06/04/19 04:00 97.6 F 66 18 117/62 95 Weight Weight 176 lb 8 oz I&O: 06/03/19 06/04/19 06/05/19 06:59 06:59 06:59 Intake Total 1210 1920 Output Total 550 1200 Balance 660 720 Result Diagrams: 06/02/19 05:01 06/02/19 05:01 Hospitalist ROS - Medication Medications: Active Medications Generic Name Dose Route Start Last Admin Trade Name Freq PRN Reason Stop Dose Admin Acetaminophen 650 mg 06/01/19 23:41 06/03/19 20:48 Tylenol PO 650 mg Q4H PRN Administration Headache/Fever/Mild Pain (1-3) Hydrocodone Bitart/Acetaminophen 1 tab 06/02/19 11:45 06/03/19 13:18 [place] 5/325 PO 1 tab Q4H PRN Administration Moderate to Severe Pain (6-10) Aspirin 81 mg 06/02/19 09:00 06/04/19 08:45 Ecotrin PO 81 mg QAM JERO Administration Diphenhydramine HCl 25 mg 06/01/19 23:41 06/03/19 20:48 Benadryl PO 25 mg Q4H PRN Administration Itching & Hives (mild) Enoxaparin Sodium 40 mg 06/02/19 09:00 06/04/19 08:45 Lovenox SC 40 mg 0900 JERO Administration Escitalopram Oxalate 10 mg 06/02/19 09:00 06/04/19 08:45 Lexapro PO 10 mg QAM JERO Administration Famotidine 20 mg 06/02/19 09:00 06/04/19 08:45 Pepcid PO 20 mg BID JERO Administration Levothyroxine Sodium 25 mcg 06/02/19 06:00 06/04/19 05:42 Synthroid PO 25 mcg 0600 JERO Administration Polyethylene Glycol 17 gm 06/03/19 17:28 06/03/19 20:48 Miralax PO 17 gm DAILYPRN PRN Administration Constipation Ramipril 10 mg 06/02/19 09:00 06/04/19 08:45 Altace PO 10 mg DAILY JERO Administration Sodium Chloride 10 ml 06/01/19 23:41 06/03/19 08:29 Flush - Normal Saline IVF 10 ml PRN PRN Administration Saline Flush - Exam General Appearance: NAD, awake alert Eye: PERRL ENT: moist mucosa Neck: supple, symmetric Heart: no murmur, no gallops, no rubs Heart - other findings: S1 and S2 present Respiratory: CTAB, no wheezes, no rales, no ronchi, rhonchi, tachypneic Gastrointestinal: soft, non-tender, non-distended, normal bowel sounds, no guarding, no rigidity Extremities: no edema Extremeties - other findings: TLSO brace in position Neurological: CN's grossly intact, no focal deficits, no new deficit Musculoskeletal: generalized weakness Psychiatric: normal affect, A&O x 3 Hosp A/P (1) Fall (on) (from) other stairs and steps, initial encounter Code(s): W10.8XXA - FALL (ON) (FROM) OTHER STAIRS AND STEPS, INITIAL ENCOUNTER Status: Acute (2) Thoracic compression fracture Code(s): S22.000A - WEDGE COMPRESSION FRACTURE OF UNSP THORACIC VERTEBRA, INIT Status: Acute (3) Back pain Code(s): M54.9 - DORSALGIA, UNSPECIFIED Status: Acute (4) Skin abrasion Code(s): T14.8XXA - OTHER INJURY OF UNSPECIFIED BODY REGION, INITIAL ENCOUNTER Status: Acute (5) Lumbar compression fracture Code(s): S32.000A - WEDGE COMPRESSION FRACTURE OF UNSP LUMBAR VERTEBRA, INIT Status: Acute (6) Dizzy Code(s): R42 - DIZZINESS AND GIDDINESS Status: Chronic (7) HTN (hypertension) Code(s): I10 - ESSENTIAL (PRIMARY) HYPERTENSION Status: Acute - Plan Plan: Pending D/c to rehab, pending insurance approval Working well with PT/ OT Neurosurgery consult, recommendations appreciated No surgical intervention required per surgery Ordered MRI brain to further eval for dizziness, Patient refused MRI brain, also unclear if cochlear implant is compatible Cochlear implant and has dizziness at baseline Pain better controlled Continue home meds as able Metabolic work up is benign GI and DVT PPX
[2019-06-04] MEDS ORDERED: Glycerin Liquid Pediatric Supp. 4 ml PR PRN (18:12)
[2019-06-04] MEDS ORDERED: Magnesium Citrate 300 ML BOT PO PRN (18:13)
[2019-06-04] MEDS ORDERED: Fleet Enema 133 ML BOT PR PRN (18:14)
[2019-06-04] MEDS: diphenhydrAMINE 25 MG CAP PO PRN (20:44)
[2019-06-04] MEDS: Acetaminophen 325 MG TAB PO PRN (20:45)
[2019-06-04] MEDS: Docusate 100 MG CAP PO SCH (20:45)
[2019-06-05] MEDS: Levothyroxine Sodium 25 MCG TAB PO SCH (05:59)
[2019-06-05] MEDS: Docusate 100 MG CAP PO SCH (08:58)
[2019-06-05] MEDS: Aspirin 81 mg Enteric Coated Tablet PO SCH (08:58)
[2019-06-05] MEDS: Escitalopram Oxalate 10 mg Tablet PO SCH (08:58)
[2019-06-05] MEDS: Famotidine 20 MG TAB PO SCH (08:58)
[2019-06-05] MEDS: Ramipril 5 MG CAP PO SCH (08:58)
[2019-06-05] MEDS: Enoxaparin Sodium 40 MG/0.4 ML SYRINGE SC SCH (08:58)
--- NOTE | 2019-06-05 13:25 | PDOC.HOSPP ---
- Subjective Subjective: Seen and examined. Patient improving. Less pain daily. Moved bowels yesterday and feeling better, less full. Breathing well. No acute overnight events. Excited to continue PT and OT in rehab. - Objective Vital Signs & Weight: Vital Signs (12 hours) Temp Pulse Resp BP BP Pulse Ox 06/05/19 11:26 97.8 F 68 19 140/62 94 L 06/05/19 07:29 97.4 F L 65 20 127/60 96 06/05/19 07:21 96 06/05/19 04:00 97.2 F L 68 17 126/82 92 L Weight Weight 176 lb 8 oz I&O: 06/04/19 06/05/19 06/06/19 06:59 06:59 06:59 Intake Total 1920 1800 Output Total 1200 850 Balance 720 950 Result Diagrams: 06/02/19 05:01 06/02/19 05:01 Hospitalist ROS - Review of Systems All other systems reviewed; all pertinent +/- noted in HPI/Subj - Medication Medications: Active Medications Generic Name Dose Route Start Last Admin Trade Name Freq PRN Reason Stop Dose Admin Acetaminophen 650 mg 06/01/19 23:41 06/04/19 20:45 Tylenol PO 650 mg Q4H PRN Administration Headache/Fever/Mild Pain (1-3) Hydrocodone Bitart/Acetaminophen 1 tab 06/02/19 11:45 06/03/19 13:18 [place] 5/325 PO 1 tab Q4H PRN Administration Moderate to Severe Pain (6-10) Aspirin 81 mg 06/02/19 09:00 06/05/19 08:58 Ecotrin PO 81 mg QAM JERO Administration Diphenhydramine HCl 25 mg 06/01/19 23:41 06/04/19 20:44 Benadryl PO 25 mg Q4H PRN Administration Itching & Hives (mild) Docusate Sodium 100 mg 06/04/19 21:00 06/05/19 08:58 Colace PO 100 mg BID JERO Administration Enoxaparin Sodium 40 mg 06/02/19 09:00 06/05/19 08:58 Lovenox SC 40 mg 0900 JERO Administration Escitalopram Oxalate 10 mg 06/02/19 09:00 06/05/19 08:58 Lexapro PO 10 mg QAM JERO Administration Famotidine 20 mg 06/02/19 09:00 06/05/19 08:58 Pepcid PO 20 mg BID JERO Administration Levothyroxine Sodium 25 mcg 06/02/19 06:00 06/05/19 05:59 Synthroid PO 25 mcg 0600 JERO Administration Polyethylene Glycol 17 gm 06/03/19 17:28 06/03/19 20:48 Miralax PO 17 gm DAILYPRN PRN Administration Constipation Ramipril 10 mg 06/02/19 09:00 06/05/19 08:58 Altace PO 10 mg DAILY JERO Administration Sodium Chloride 10 ml 06/01/19 23:41 06/03/19 08:29 Flush - Normal Saline IVF 10 ml PRN PRN Administration Saline Flush Tramadol HCl 50 mg 06/02/19 11:44 06/04/19 18:26 Ultram PO 50 mg Q6H PRN Administration Moderate Pain (4-6) - Exam General Appearance: NAD Eye: anicteric sclera Eye - other findings: EOMI ENT: no oropharyngeal lesions, moist mucosa Neck: supple, symmetric, no lymphadenopathy Heart: RRR, no murmur, no rubs Respiratory: CTAB, no rales, no ronchi Gastrointestinal: soft, non-distended, normal bowel sounds, no hepatomegaly, no guarding, no rigidity Extremities: no edema Skin: no lesions, no rashes Neurological: CN's grossly intact, no focal deficits Musculoskeletal: generalized weakness Psychiatric: normal affect, A&O x 3 Hosp A/P (1) Fall (on) (from) other stairs and steps, initial encounter Code(s): W10.8XXA - FALL (ON) (FROM) OTHER STAIRS AND STEPS, INITIAL ENCOUNTER Status: Acute (2) Thoracic compression fracture Code(s): S22.000A - WEDGE COMPRESSION FRACTURE OF UNSP THORACIC VERTEBRA, INIT Status: Acute (3) Back pain Code(s): M54.9 - DORSALGIA, UNSPECIFIED Status: Acute (4) Skin abrasion Code(s): T14.8XXA - OTHER INJURY OF UNSPECIFIED BODY REGION, INITIAL ENCOUNTER Status: Acute (5) Lumbar compression fracture Code(s): S32.000A - WEDGE COMPRESSION FRACTURE OF UNSP LUMBAR VERTEBRA, INIT Status: Acute (6) Dizzy Code(s): R42 - DIZZINESS AND GIDDINESS Status: Chronic (7) HTN (hypertension) Code(s): I10 - ESSENTIAL (PRIMARY) HYPERTENSION Status: Acute - Plan Plan: Pending D/c to rehab, pending insurance approval Working well with PT/ OT Medically stable for lower level of care Neurosurgery consult, recommendations appreciated No surgical intervention required per surgery Ordered MRI brain to further eval for dizziness, Patient refused MRI brain, also unclear if cochlear implant is compatible Cochlear implant and has dizziness at baseline Pain better controlled Continue home meds as able Metabolic work up is benign GI and DVT PPX
[2019-06-05 16:12] VITALS: BP 122/73; TEMP 98.2
--- NOTE | 2019-06-06 05:36 | DIS ---
DATE OF ADMISSION: 06/03/2019 DATE OF DISCHARGE: 06/05/2019 DISCHARGE DIAGNOSES: 1. Fall. 2. Compression fractures in the thoracic and lumbar spine, please see full CT scan report for details. 3. Chronic dizziness, status post cochlear implant. 4. Hypothyroidism. 5. Hypertension. 6. Depression. 7. Osteoarthritis. DISCHARGE MEDICATIONS: Please see full discharge medication list for details, there were no changes to home medications. SIGNIFICANT FINDINGS: The patient was found to have compression fractures at T2 and L2 on CT scan. PROCEDURES PERFORMED AND TREATMENTS RENDERED: The patient was seen and evaluated by Neurosurgery, who recommended no acute surgical intervention. The patient is to wear a TLSO brace. The patient is recommended to complete a full course of rehab in the inpatient setting. CONDITION ON DISCHARGE: Stable. SPECIFIC INSTRUCTIONS FOR THE PATIENT/FAMILY: 1. The patient recommended to complete a full course of inpatient rehab. 2. The patient's medical regimen is to be re-evaluated by admitting physician at rehab facility. 3. The patient is recommended to follow up with Neurosurgery in the outpatient setting at her upcoming appointment. 4. The patient is recommended to follow up with primary care physician in the next 5 to 7 days after discharge from rehab. HOSPITAL COURSE: Ms. Lloyd is a very pleasant 83-year-old white female who presents after a fall and sustaining multilevel compression fractures of the spine. The patient was found to have compression fracture in T2 and L2 and a Neurosurgical consultation was requested. Please see full consultation for details. Neurosurgery recommending no acute surgical intervention, recommending the patient to ambulate with TLSO brace while out of bed. The patient recommended safe to work with Physical Therapy and Occupational Therapy, who recommended inpatient rehab treatment. The patient was accepted to inpatient rehab on 06/05/2019, and discharge orders were placed. The patient recommended to complete a full course of rehab. The patient recommended to take all medications as outlined, to be re-evaluated by admitting physician. The patient recommended to follow up with Neurosurgery and primary care physician in the outpatient setting as directed. The patient recommended to return to acute care hospital immediately if signs or symptoms return, worsen, or any other new symptoms occur. Greater than 36 minutes spent coordinating care and discharge process for this patient. Job ID: [id number]
--- NOTE | 2019-06-07 21:07 | PQF ---
ERASTO VASQUEZ ERIK [id number] [facility]-279 [id number] CLINICAL DOCUMENTATION CLARIFICATION FORM: POST DISCHARGE Addendum to original discharge summary date: ____ Late entry note date: __ DATE: 06-07-2019 ATTN: Keyon Arora Please exercise your independent, professional judgment in responding to the clarification form. Clinical indicators are provided on the bottom of this form for your review Can you please specify the type of fracture based on the indicators below. Please check appropriate box(s): THORACIC AND LUMBAR COMPRESSION FRACTURE Type of fracture: Check all that apply [ XX ] Traumatic fracture [ ] Pathologic fracture [ ] Osteopenic fracture--- [ ] Postmenopausal [ ] Idiopathic [ ] other (specify) [ ] Other diagnosis please specify: [ ] Unable to determine CLINICAL INDICATORS: -H&P 06/01 - "CC: I fell" -H&P 06/01 - "She has fallen onto the floor" -H&P 06/01 - "CT scan of spine where they discovered she had a L2 compression fracture" -H&P 06/01 - "Vertebral fracture" -CT spine 06/01 - "There is diffuse osteopenia" -PN 06/02 - "Thoracic compression fx" -PN 06/02 - "Lumbar compression fx" RISK FACTORS: -ED Notes 06/03 - Hx of fall -H&P 06/01 - 83 years old female -CT spine 06/01 - osteopenia -DS 06/05 - OA TREATMENT: -H&P 06/01 - CT of spine -H&P 06/01 - Neurosurgery consult -Consultation 06/02 - TLSO brace -PN 06/02 PT -MAR 06/01 - Fentanyl 100mcg IV (This form is maintained as a part of the permanent medical record) 2014 [employer]. All Rights Reserved [email or web address] [not provided] MTDD
--- NOTE | 2019-06-10 01:27 | EKG ---
Test Reason : Blood Pressure : / mmHG Vent. Rate : 077 BPM Atrial Rate : 077 BPM P-R Int : 156 ms QRS Dur : 074 ms QT Int : 394 ms P-R-T Axes : 052 -01 010 degrees QTc Int : 445 ms Normal sinus rhythm Inferior infarct , age undetermined Abnormal ECG Confirmed by MARICEL FLORES ([id number]), editorial project manager RONNI BARFIELD ([id number]) on 06/10/2019 1:27:02 AM Referred By: Confirmed By:MARICEL FLORES
== END 2019-06-05 19:46 | DRG 552 ==
LOC: ERS 14:16 → 2NO 19:45 → OBSVTOIN 06-03 17:26
PROVIDERS: ADMIT Internal Medicine; ATTEND Internal Medicine
DX: S22.029A Unspecified fracture of second thoracic vertebra, initial encounter for closed fracture (principal); S32.029A Unspecified fracture of second lumbar vertebra, initial encounter for closed fracture; I11.0 Hypertensive heart disease with heart failure; I50.9 Heart failure, unspecified; S22.089A Unspecified fracture of T11-T12 vertebra, initial encounter for closed fracture; Z66 Do not resuscitate; Z60.2 Problems related to living alone; W18.30XA Fall on same level, unspecified, initial encounter; Z96.21 Cochlear implant status; R42 Dizziness and giddiness; T14.8XXA Other injury of unspecified body region, initial encounter; E03.9 Hypothyroidism, unspecified; F32.9 Major depressive disorder, single episode, unspecified; M19.90 Unspecified osteoarthritis, unspecified site; Z88.0 Allergy status to penicillin; Z88.2 Allergy status to sulfonamides; Z79.82 Long term (current) use of aspirin; Z79.899 Other long term (current) drug therapy; Z90.710 Acquired absence of both cervix and uterus
CPT/HCPCS: 36415; 70450; 72125; 74177; 80048; 80053; 80061; 81003; 83880; 84484; 85025; 93005; 93306; 93880; 94760; 96361; 96374; 96376; J1650; J3010; Q0163; Q9966

== ENCOUNTER 2019-06-27 09:47 | Outpatient (CLI) | payer MEDICARE, BC ==
--- NOTE | 2019-06-27 12:00 | RAD ---
LUMBAR SPINE 2 VIEWS: Date: 06/27/19 HISTORY: M48.56XA thoracic and lumbar compression fractures. COMPARISON: CT 06/01/19. FINDINGS: No further height loss of the superior end plate deformity of L2. No further height loss of inferior compression deformity of T12. No new acute superimposed fracture. Mild narrowing of the disc space at L1-2 and L2-3. No listhesis. Moderate facet arthropathy L4-5 and L5-S1. IMPRESSION: No further height loss of the L2 and T12 compression fractures. POS: [facility]
--- NOTE | 2019-06-27 12:01 | RAD ---
THORACIC SPINE 2 VIEWS: Date: 06/27/19 HISTORY: M48.56XA thoracic and lumbar compression fractures. COMPARISON: CT of the abdomen and pelvis dated 06/01/19. FINDINGS: Dense calcification of transverse aorta. No upper thoracic spine compression deformities appreciated. No further height loss inferior end plate of T12 compression fracture. IMPRESSION: 1. No further height loss of inferior end plate T12 compression fracture. 2. Mild cardiomegaly. POS: [facility]
== END 2019-06-27 09:48 | disposition home or self-care (01) ==
LOC: TBSIIMAG 09:47
PROVIDERS: ATTEND Surgery
DX: M48.56XA Collapsed vertebra, not elsewhere classified, lumbar region, initial encounter for fracture (principal); M48.54XA Collapsed vertebra, not elsewhere classified, thoracic region, initial encounter for fracture; I50.32 Chronic diastolic (congestive) heart failure; I51.7 Cardiomegaly; Z79.52 Long term (current) use of systemic steroids
CPT/HCPCS: 72070; 72100; 80048

== ENCOUNTER 2021-08-03 06:58 | Observation (INO) | payer MEDICARE, BC ==
[2021-08-03 07:21] LABS: #Basophils 0.1 thou/uL (0.0-0.2); #Eosinphils 0.3 thou/uL (0.0-0.7); #Monocytes 0.6 thou/uL (0.11-0.59); #Neutrophils 4.4 thou/uL (1.40-6.50); %Basophils 0.7 % (0.0-1.0); %Eosinophils 3.7 % (0.0-10.0); %Lymphocytes 27.8 % (21.0-51.0); %Monocytes 7.9 % (0.0-10.0); %Neutrophils 59.9 % (42.0-75.0); Hemoglobin 14.2 g/dL (12.0-16.0); Mean Corpuscular HGB CONC 33.6 g/dL (32.0-36.0); Mean Corpuscular Hemoglobin 30.5 pg (27.0-31.0); Mean Corpuscular Volume 90.6 fL (78.0-98.0); Mean Platelet Volume 7.4 fL (7.4-10.4); Platelet Count 234 thou/uL (130-400); RBC Distribution Width 12.8 % (11.5-14.5); Red Blood Cell (RBC) Count 4.67 mill/uL (4.20-5.40); White Blood Cell (WBC) Count 7.3 thou/uL (4.8-10.8)
[2021-08-03 07:39] LABS: Prothrombin Time 13.2 sec (12.0-14.7)
[2021-08-03 07:40] LABS: PTT 32.3 sec (22.9-36.1)
[2021-08-03 07:43] LABS: ALT (SGPT) 34 U/L (8-55); AST (SGOT) 22 U/L (5-34); Alkaline Phosphatase 83 U/L (40-110); Anion Gap 13 mmol/L (10-20); BUN (Urea Nitrogen) 23 mg/dL (9.8-20.1); Bilirubin, Total 0.5 mg/dL (0.2-1.2); Calc. Creatinine Clearance 0 mL/min (70-130); Calcium 9.5 mg/dL (7.8-10.44); Carbon Dioxide 29 mmol/L (23-31); Chloride 103 mmol/L (98-107); Globulin 2.6 g/dL (2.4-3.5); Glucose 97 mg/dL (83-110); Potassium 3.6 mmol/L (3.5-5.1); Protein, Total 6.6 g/dL (5.8-8.1); Sodium 141 mmol/L (136-145)
[2021-08-03 08:06] LABS: CKMB 0.4 ng/mL (0-6.6)
[2021-08-03] MEDS ORDERED: Aspirin Chewable 81 MG TAB ONE (08:33)
[2021-08-03] MEDS ORDERED: Guaifenesin DM 100-10/5 ML UDCUP PO PRN (10:59)
[2021-08-03] MEDS ORDERED: Ondansetron PF 4 MG/2 ML Vial IVP PRN (10:59)
[2021-08-03] MEDS ORDERED: Acetaminophen 325 MG TAB PO PRN (10:59)
[2021-08-03] MEDS ORDERED: Calcium Carbonate 500 MG ChewTAB PO PRN (10:59)
[2021-08-03] MEDS ORDERED: Cepastat Lozenges 1 LOZ PO PRN (10:59)
[2021-08-03] MEDS ORDERED: Bisacodyl 10 MG SUPP PR PRN (10:59)
[2021-08-03 12:49] VITALS: BMI 33.2
[2021-08-03 14:27] LABS: CKMB 0.5 ng/mL (0-6.6)
[2021-08-03] MEDS: Furosemide 40 MG TAB PO SCH (14:29)
[2021-08-03] MEDS: Benzonatate 100 MG CAP PO SCH ×2 (15:44→20:01)
[2021-08-03 17:50] LABS: SARS-CoV-2 PCR by NAA Not Detected (NotDetected)
[2021-08-03] MEDS: guaiFENesin ER 600 MG TAB PO SCH (20:00)
[2021-08-03] MEDS ORDERED: Atorvastatin Calcium 40 MG TAB PO SCH (21:00)
[2021-08-04] MEDS: Levothyroxine Sodium 50 MCG TAB PO SCH ×2 (05:30→05:53)
[2021-08-04 06:19] LABS: #Eosinphils 0.2 thou/uL (0.0-0.7); #Lymphocytes 2.1 thou/uL (1.20-3.40); #Monocytes 0.6 thou/uL (0.11-0.59); #Neutrophils 4.1 thou/uL (1.40-6.50); %Basophils 0.4 % (0.0-1.0); %Eosinophils 2.9 % (0.0-10.0); %Monocytes 8.8 % (0.0-10.0); %Neutrophils 57.9 % (42.0-75.0); Hemoglobin 13.1 g/dL (12.0-16.0); Mean Corpuscular HGB CONC 33.3 g/dL (32.0-36.0); Mean Corpuscular Hemoglobin 30.5 pg (27.0-31.0); Mean Corpuscular Volume 91.9 fL (78.0-98.0); Mean Platelet Volume 7.8 fL (7.4-10.4); Platelet Count 206 thou/uL (130-400); RBC Distribution Width 12.7 % (11.5-14.5); White Blood Cell (WBC) Count 7.1 thou/uL (4.8-10.8)
[2021-08-04 06:41] LABS: Anion Gap 12 mmol/L (10-20); BUN (Urea Nitrogen) 16 mg/dL (9.8-20.1); Calc. Creatinine Clearance 66 mL/min (70-130); Calcium 8.8 mg/dL (7.8-10.44); Carbon Dioxide 26 mmol/L (23-31); Cardiac Risk 9.6 (Less than 4.5); Chloride 105 mmol/L (98-107); Cholesterol 241 mg/dl (< 200 Desired); Glucose 93 mg/dL (83-110); HDL Cholesterol 25 mg/dL (>60 Neg Risk); LDL Cholesterol, Calculated 179 mg/dL; Potassium 3.7 mmol/L (3.5-5.1); Sodium 139 mmol/L (136-145); Triglycerides 187 mg/dL (Less than 150)
[2021-08-04 07:01] LABS: Free T4 (Free Thyroxine) 0.91 ng/dL (0.70-1.48)
[2021-08-04] MEDS: Benzonatate 100 MG CAP PO SCH ×2 (08:47→14:33)
[2021-08-04] MEDS: guaiFENesin ER 600 MG TAB PO SCH (08:49)
[2021-08-04] MEDS: Furosemide 40 MG TAB PO SCH ×2 (08:49→14:33)
[2021-08-04] MEDS: Enoxaparin Sodium 40 MG/0.4 ML SYRINGE SC SCH ×2 (08:50→09:05)
[2021-08-04] MEDS ORDERED: Aspirin 81 mg Enteric Coated Tablet PO SCH (09:00)
[2021-08-04] MEDS ORDERED: Ramipril 5 MG CAP PO SCH (09:00)
[2021-08-04] MEDS ORDERED: Escitalopram Oxalate 10 mg Tablet PO SCH (09:00)
[2021-08-04] MEDS ORDERED: Famotidine 20 MG TAB PO SCH (09:00)
[2021-08-04] MEDS: FLU VACC QS2021-22(65YR UP)/PF 240 MCG/0.7 ML SYRINGE IM ONE ×2 (09:06→16:59)
[2021-08-04 15:48] VITALS: BP 131/79; TEMP 98.3
== END 2021-08-04 17:25 | disposition home or self-care (01) ==
LOC: ERS 06:58 → NEURO 10:59
PROVIDERS: ADMIT Internal Medicine; ATTEND Internal Medicine
DX: G93.41 Metabolic encephalopathy (principal); I11.0 Hypertensive heart disease with heart failure; I50.30 Unspecified diastolic (congestive) heart failure; E03.9 Hypothyroidism, unspecified; H91.92 Unspecified hearing loss, left ear; I08.3 Combined rheumatic disorders of mitral, aortic and tricuspid valves; S32.000A Wedge compression fracture of unspecified lumbar vertebra, initial encounter for closed fracture; Z66 Do not resuscitate; Z23 Encounter for immunization; Z86.73 Personal history of transient ischemic attack (TIA), and cerebral infarction without residual deficits; Z79.82 Long term (current) use of aspirin; Z79.899 Other long term (current) drug therapy; Z88.0 Allergy status to penicillin; Z88.2 Allergy status to sulfonamides; Z96.21 Cochlear implant status; Z20.822 Contact with and (suspected) exposure to COVID-19; W10.8XXA Fall (on) (from) other stairs and steps, initial encounter; R41.82 Altered mental status, unspecified
CPT/HCPCS: 70450; 71045; 80048; 80061; 82553; 83880; 84439; 84443; 84481; 84484 ×2; 85025; 85610; 85730; 90662; 93005; 93306; 93880; 94640 ×2; 95816; 95819; 95957; 97116; 97139 ×3; 97530; 97535; 99285; G0008; G0378 ×3; U0003; U0005; 36415; 80053; 90471; J1650; J7620

== ENCOUNTER 2021-08-08 10:26 | Inpatient (IN) | payer OTHER, MEDICARE, BC ==
[2021-08-08] MEDS ORDERED: Fentanyl 100 MCG/2 ML VIAL ONE ×2 (10:46→17:08)
[2021-08-08 11:47] LABS: #Lymphocytes 0.8 thou/uL (1.20-3.40); #Monocytes 0.6 thou/uL (0.11-0.59); #Neutrophils 10.2 thou/uL (1.40-6.50); %Basophils 0.1 % (0.0-1.0); %Eosinophils 0.1 % (0.0-10.0); %Lymphocytes 6.8 % (21.0-51.0); %Monocytes 5.5 % (0.0-10.0); %Neutrophils 87.6 % (42.0-75.0); Hemoglobin 14.5 g/dL (12.0-16.0); Mean Corpuscular HGB CONC 33.8 g/dL (32.0-36.0); Mean Corpuscular Volume 91.7 fL (78.0-98.0); Mean Platelet Volume 7.6 fL (7.4-10.4); Platelet Count 243 thou/uL (130-400); RBC Distribution Width 12.8 % (11.5-14.5); Red Blood Cell (RBC) Count 4.66 mill/uL (4.20-5.40); White Blood Cell (WBC) Count 11.7 thou/uL (4.8-10.8)
[2021-08-08 12:11] LABS: ALT (SGPT) 47 U/L (8-55); AST (SGOT) 29 U/L (5-34); Albumin 4.2 g/dL (3.4-4.8); Alkaline Phosphatase 92 U/L (40-110); Anion Gap 18 mmol/L (10-20); BUN (Urea Nitrogen) 29 mg/dL (9.8-20.1); Bilirubin, Total 0.7 mg/dL (0.2-1.2); CK (CPK) 118 U/L (29-168); Calc. Creatinine Clearance 0 mL/min (70-130); Calcium 9.8 mg/dL (7.8-10.44); Carbon Dioxide 23 mmol/L (23-31); Chloride 103 mmol/L (98-107); Globulin 2.6 g/dL (2.4-3.5); Glucose 150 mg/dL (83-110); Potassium 4.1 mmol/L (3.5-5.1); Protein, Total 6.8 g/dL (5.8-8.1); Sodium 140 mmol/L (136-145)
[2021-08-08] MEDS ORDERED: Boostrix 0.5 ML (Tdap) VIAL ONE (12:32)
[2021-08-08] MEDS ORDERED: hydrALAZINE 20 MG/ML VIAL SLOW IVP PRN (13:58)
[2021-08-08] MEDS ORDERED: Dextrose 50% Abboject 50 ML SYRINGE SLOW IVP PRN (13:58)
[2021-08-08] MEDS ORDERED: Ondansetron PF 4 MG/2 ML Vial IVP PRN (13:58)
[2021-08-08] MEDS ORDERED: Morphine 4 MG/ML VIAL SLOW IVP PRN (13:58)
[2021-08-08] MEDS ORDERED: Dextrose 5% in Water 1,000 ML IV PRN (13:58)
[2021-08-08 14:02] LABS: SARS-CoV-2 NAA Rapid Test Not Detected (NotDetected)
[2021-08-08] MEDS ORDERED: Ibuprofen 200 MG TAB PO PRN (14:04)
[2021-08-08] MEDS ORDERED: traMADol HCl 50 MG TAB PO PRN (14:04)
[2021-08-08] MEDS ORDERED: Clindamycin/D5W 900 MG in Premix Bag 1 BAG IVPB SCH ×2 (16:00→22:00)
[2021-08-08] MEDS ORDERED: Clindamycin/D5W 900 mg/50 ml Premix Bag ONE (17:14)
[2021-08-08] MEDS ORDERED: Levofloxacin 500 mg/D5W 100 ml Premix Bag ONE (17:17)
[2021-08-08] MEDS ORDERED: Glycopyrrolate 0.2 MG/ML 5 ML SYRINGE ONE (17:30)
[2021-08-08] MEDS ORDERED: Lidocaine 1% PF 5 ML VIAL ONE (17:30)
[2021-08-08] MEDS ORDERED: Succinylcholine 200 MG/10 ml SYRINGE FS ONE (17:30)
[2021-08-08] MEDS ORDERED: Rocuronium Bromide 10 MG/ML (10ML VIAL) ONE (17:30)
[2021-08-08] MEDS ORDERED: Ondansetron PF 4 MG/2 ML Vial ONE (17:30)
[2021-08-08] MEDS ORDERED: PROPOFOL 200 MG/20 ML VIAL ONE (17:30)
[2021-08-08] MEDS ORDERED: Ketamine 50 MG/ML (10ML VIAL) ONE (17:36)
[2021-08-08] MEDS ORDERED: SUGAMMADEX SODIUM 200 MG/2 ML VIAL ONE (18:36)
[2021-08-08] MEDS ORDERED: Ondansetron HCl/PF 4 MG/2 ML Vial IVP PRN (18:37)
[2021-08-08] MEDS ORDERED: Promethazine HCl 25 MG/ML VIAL IM PRN (18:37)
[2021-08-08] MEDS ORDERED: HYDROmorphone 2 MG/ML VIAL SLOW IVP PRN (18:37)
[2021-08-08] MEDS ORDERED: Promethazine HCl 25 MG/ML VIAL IVPB PRN (18:37)
[2021-08-08] MEDS: Acetaminophen 500 MG TAB PO SCH (19:31)
[2021-08-08] MEDS ORDERED: Famotidine 20 MG TAB PO SCH (21:00)
[2021-08-08] MEDS ORDERED: Metoprolol Tartrate 5 MG/5 ML VIAL ONE (22:01)
[2021-08-08 23:06] VITALS: BMI 27.9
[2021-08-08] MEDS: Sodium Chloride 0.9% 1,000 ML IV SCH (23:10)
[2021-08-08] MEDS: Senokot S 8.6-50 MG TAB PO SCH (23:38)
[2021-08-09] MEDS: Acetaminophen 500 MG TAB PO SCH ×5 (00:04→23:25)
[2021-08-09] MEDS: Clindamycin/D5W 900 MG in Premix Bag 1 BAG IVPB SCH ×2 (01:08→09:39)
[2021-08-09 06:10] LABS: #Eosinphils 0.1 thou/uL (0.0-0.7); #Lymphocytes 0.8 thou/uL (1.20-3.40); #Monocytes 0.9 thou/uL (0.11-0.59); #Neutrophils 10.1 thou/uL (1.40-6.50); %Lymphocytes 6.9 % (21.0-51.0); %Monocytes 7.4 % (0.0-10.0); %Neutrophils 84.6 % (42.0-75.0); Hemoglobin 11.3 g/dL (12.0-16.0); Mean Corpuscular HGB CONC 33.9 g/dL (32.0-36.0); Mean Corpuscular Hemoglobin 31.5 pg (27.0-31.0); Mean Corpuscular Volume 92.7 fL (78.0-98.0); Mean Platelet Volume 8.2 fL (7.4-10.4); Platelet Count 216 thou/uL (130-400); RBC Distribution Width 13.1 % (11.5-14.5)
[2021-08-09 06:19] LABS: Anion Gap 14 mmol/L (10-20); BUN (Urea Nitrogen) 30 mg/dL (9.8-20.1); Calc. Creatinine Clearance 43 mL/min (70-130); Calcium 8.6 mg/dL (7.8-10.44); Carbon Dioxide 26 mmol/L (23-31); Chloride 106 mmol/L (98-107); Glucose 154 mg/dL (83-110); Magnesium 2.1 mg/dL (1.6-2.6); Phosphorus 4.1 mg/dL (2.3-4.7); Sodium 142 mmol/L (136-145)
[2021-08-09] MEDS ORDERED: Sodium Chloride 0.9% 500 ML IV SCH (08:30)
[2021-08-09] MEDS: Escitalopram Oxalate 10 mg Tablet PO SCH (09:39)
[2021-08-09] MEDS: Senokot S 8.6-50 MG TAB PO SCH ×2 (09:39→20:33)
[2021-08-09] MEDS: Famotidine 20 MG TAB PO SCH (09:39)
[2021-08-09] MEDS: Sodium Chloride 0.9% 1,000 ML IV SCH (09:40)
[2021-08-09] MEDS: Polyethylene Glycol 3350 17 GM Packet PO SCH (09:41)
[2021-08-09 15:21] LABS: Bacteria/HPF None Seen HPF (None Seen); Bilirubin Negative (Negative); Blood, Urine Negative (Negative); Clarity Clear (Clear); Glucose, Urine (Dipstick) Greater than 1000 mg/dL (Negative); Ketone, Urine Negative (Negative); Leukocyte 75 Leu/uL (Negative); Nitrite Negative (Negative); Protein, Urine (Dipstick) 10 mg/dL (Neg-Trace); RBC/HPF 0-3 HPF (0-3); Specific Gravity, Urine 1.019 (1.002-1.036); Squamous Epithelial 0-3 HPF (0-3); Urobilinogen Normal mg/dL (Less than 2)
[2021-08-09 15:33] LABS: Renal Epithelial 0-3 HPF (None Seen); Transitional Epithelial 0-3 HPF (None Seen)
[2021-08-09 15:34] LABS: Urine Culture Reflex Yes Yes
[2021-08-09] MEDS ORDERED: Insulin Regular 300 UNITS/3 ML VIAL SC PRN ×2 (16:00)
[2021-08-09 16:15] LABS: Hemoglobin A1c 5.5 % (4.0-6.0)
[2021-08-10] MEDS: Cyclobenzaprine 10 MG TAB PO PRN ×2 (02:16→14:37)
[2021-08-10 04:55] LABS: #Eosinphils 0.1 thou/uL (0.0-0.7); #Lymphocytes 1.3 thou/uL (1.20-3.40); #Monocytes 0.9 thou/uL (0.11-0.59); #Neutrophils 6.7 thou/uL (1.40-6.50); %Basophils 0.1 % (0.0-1.0); %Eosinophils 0.6 % (0.0-10.0); %Lymphocytes 14.9 % (21.0-51.0); %Monocytes 9.6 % (0.0-10.0); %Neutrophils 74.9 % (42.0-75.0); Hemoglobin 9.4 g/dL (12.0-16.0); Mean Corpuscular HGB CONC 33.6 g/dL (32.0-36.0); Mean Corpuscular Hemoglobin 31.4 pg (27.0-31.0); Mean Corpuscular Volume 93.3 fL (78.0-98.0); Mean Platelet Volume 7.7 fL (7.4-10.4); Platelet Count 183 thou/uL (130-400); RBC Distribution Width 13.1 % (11.5-14.5); White Blood Cell (WBC) Count 8.9 thou/uL (4.8-10.8)
[2021-08-10] MEDS: Acetaminophen 500 MG TAB PO SCH ×2 (05:06→08:17)
[2021-08-10 05:27] LABS: Anion Gap 11 mmol/L (10-20); BUN (Urea Nitrogen) 27 mg/dL (9.8-20.1); Calc. Creatinine Clearance 61 mL/min (70-130); Calcium 7.9 mg/dL (7.8-10.44); Carbon Dioxide 24 mmol/L (23-31); Chloride 109 mmol/L (98-107); Glucose 114 mg/dL (83-110); Magnesium 2.1 mg/dL (1.6-2.6); Phosphorus 2.1 mg/dL (2.3-4.7); Potassium 3.7 mmol/L (3.5-5.1); Sodium 140 mmol/L (136-145)
[2021-08-10] MEDS ORDERED: Sodium Chloride 0.9% 500 ML IV SCH (06:15)
[2021-08-10] MEDS ORDERED: Potassium Phosphate 30 MMOL in Sodium Chloride 0.9% 250 ML 250 ML IVPB SCH (08:00)
[2021-08-10] MEDS: Escitalopram Oxalate 10 mg Tablet PO SCH (08:19)
[2021-08-10] MEDS: Polyethylene Glycol 3350 17 GM Packet PO SCH (08:19)
[2021-08-10] MEDS: Famotidine 20 MG TAB PO SCH (08:20)
[2021-08-10] MEDS: Senokot S 8.6-50 MG TAB PO SCH ×2 (08:20→20:50)
[2021-08-10] MEDS: traMADol HCl 50 MG TAB PO PRN (16:45)
[2021-08-11] MEDS: Cyclobenzaprine 10 MG TAB PO PRN (05:31)
[2021-08-11 05:43] LABS: #Eosinphils 0.2 thou/uL (0.0-0.7); #Lymphocytes 1.4 thou/uL (1.20-3.40); #Monocytes 0.7 thou/uL (0.11-0.59); %Basophils 0.4 % (0.0-1.0); %Eosinophils 2.7 % (0.0-10.0); %Lymphocytes 16.9 % (21.0-51.0); %Monocytes 8.7 % (0.0-10.0); %Neutrophils 71.2 % (42.0-75.0); Hemoglobin 10.1 g/dL (12.0-16.0); Mean Corpuscular HGB CONC 33.9 g/dL (32.0-36.0); Mean Corpuscular Hemoglobin 31.9 pg (27.0-31.0); Mean Platelet Volume 7.6 fL (7.4-10.4); Platelet Count 162 thou/uL (130-400); RBC Distribution Width 12.8 % (11.5-14.5); Red Blood Cell (RBC) Count 3.17 mill/uL (4.20-5.40); White Blood Cell (WBC) Count 8.4 thou/uL (4.8-10.8)
[2021-08-11 06:06] LABS: Anion Gap 12 mmol/L (10-20); BUN (Urea Nitrogen) 20 mg/dL (9.8-20.1); Calc. Creatinine Clearance 65 mL/min (70-130); Calcium 8.4 mg/dL (7.8-10.44); Carbon Dioxide 25 mmol/L (23-31); Chloride 106 mmol/L (98-107); Glucose 97 mg/dL (83-110); Magnesium 2.1 mg/dL (1.6-2.6); Phosphorus 2.1 mg/dL (2.3-4.7); Potassium 3.7 mmol/L (3.5-5.1); Sodium 139 mmol/L (136-145)
[2021-08-11] MEDS: Senokot S 8.6-50 MG TAB PO SCH ×2 (08:28→21:49)
[2021-08-11] MEDS: Polyethylene Glycol 3350 17 GM Packet PO SCH (08:29)
[2021-08-11] MEDS: Escitalopram Oxalate 10 mg Tablet PO SCH (08:29)
[2021-08-11] MEDS: Famotidine 20 MG TAB PO SCH (08:29)
[2021-08-11] MEDS: Aspirin 81 mg Enteric Coated Tablet PO SCH ×2 (09:36→21:49)
[2021-08-11] MEDS ORDERED: Ibuprofen 200 MG TAB PO PRN (10:36)
[2021-08-11] MEDS ORDERED: Furosemide 40 MG TAB PO SCH (10:45)
[2021-08-11] MEDS ORDERED: Ramipril 5 MG CAP PO SCH (10:45)
[2021-08-11] MEDS ORDERED: Acetaminophen 500 MG TAB PO SCH (10:45)
[2021-08-11] MEDS: traMADol HCl 50 MG TAB PO PRN (11:47)
[2021-08-11] MEDS: Acetaminophen 500 MG TAB PO SCH ×2 (13:21→17:16)
[2021-08-11] MEDS: Furosemide 40 MG TAB PO SCH (14:38)
[2021-08-11] MEDS: Ibuprofen 200 MG TAB PO PRN (14:38)
[2021-08-12] MEDS: Acetaminophen 500 MG TAB PO SCH ×4 (00:46→17:20)
[2021-08-12] MEDS: traMADol HCl 50 MG TAB PO PRN (09:26)
[2021-08-12] MEDS: Escitalopram Oxalate 10 mg Tablet PO SCH (09:27)
[2021-08-12] MEDS: Ramipril 5 MG CAP PO SCH (09:28)
[2021-08-12] MEDS: Famotidine 20 MG TAB PO SCH (09:28)
[2021-08-12] MEDS: Aspirin 81 mg Enteric Coated Tablet PO SCH ×2 (09:28→20:31)
[2021-08-12] MEDS: Senokot S 8.6-50 MG TAB PO SCH ×2 (09:28→20:31)
[2021-08-12] MEDS: Furosemide 40 MG TAB PO SCH ×2 (09:28→15:36)
[2021-08-12] MEDS: Polyethylene Glycol 3350 17 GM Packet PO SCH (09:29)
[2021-08-12] MEDS: Ibuprofen 200 MG TAB PO PRN ×2 (14:01→20:31)
[2021-08-12] MEDS ORDERED: Potassium Phosphate 15 MMOL in Sodium Chloride 0.9% 100 ML IVPB SCH (16:15)
[2021-08-13] MEDS: Acetaminophen 500 MG TAB PO SCH ×3 (00:36→11:47)
[2021-08-13] MEDS: Ibuprofen 200 MG TAB PO PRN ×2 (06:42→15:46)
[2021-08-13] MEDS: Ramipril 5 MG CAP PO SCH (09:11)
[2021-08-13] MEDS: Escitalopram Oxalate 10 mg Tablet PO SCH (09:12)
[2021-08-13] MEDS: Senokot S 8.6-50 MG TAB PO SCH (09:12)
[2021-08-13] MEDS: Polyethylene Glycol 3350 17 GM Packet PO SCH (09:12)
[2021-08-13] MEDS: Famotidine 20 MG TAB PO SCH (09:12)
[2021-08-13] MEDS: Aspirin 81 mg Enteric Coated Tablet PO SCH (09:12)
[2021-08-13] MEDS: Furosemide 40 MG TAB PO SCH ×2 (09:12→15:46)
[2021-08-13] MEDS ORDERED: Sodium Chloride 0.65% Nasal 44 ML BOT EA NARE PRN (10:46)
[2021-08-13 16:52] VITALS: BP 158/74; TEMP 97.7
== END 2021-08-13 18:40 | DRG 481 ==
LOC: ERS 10:26 → SJJU 13:58
PROVIDERS: ADMIT Specialist; ATTEND Surgery
PROC: 0QH736Z Insertion of Intramedullary Internal Fixation Device into Left Upper Femur, Percutaneous Approach (ICD-10-PCS; principal; 2021-08-08)
DX: S72.142A Displaced intertrochanteric fracture of left femur, initial encounter for closed fracture (principal); I50.32 Chronic diastolic (congestive) heart failure; N17.9 Acute kidney failure, unspecified; Z20.822 Contact with and (suspected) exposure to COVID-19; I11.0 Hypertensive heart disease with heart failure; E03.9 Hypothyroidism, unspecified; W01.0XXA Fall on same level from slipping, tripping and stumbling without subsequent striking against object, initial encounter; R33.9 Retention of urine, unspecified; Z88.0 Allergy status to penicillin; Z88.2 Allergy status to sulfonamides; Z90.49 Acquired absence of other specified parts of digestive tract; Z90.710 Acquired absence of both cervix and uterus; Z86.73 Personal history of transient ischemic attack (TIA), and cerebral infarction without residual deficits
CPT/HCPCS: 36415; 36416; 70450; 70486; 71045; 72125; 72192; 76000; 80048; 80053; 81001; 82550; 83036; 83735; 83880; 84100; 85025; 86850; 86900; 86901; 87086; 90471; 90715; 93005; 94760; 96374; C1713; G0390; J1956; J2270; J2405; J2704; J3010; J3490; J7030; J7050; J7620; U0002

== ENCOUNTER 2021-08-17 19:53 | Emergency (ER) | payer MEDICARE, BC ==
[~2021-08-17 19:53] MED LIST changes: -ISOVUE-370 76%-LOCM 1 ML ONE; +Iopamidol-370 76% 500 ML 1 ML ONE
[2021-08-17 20:53] LABS: #Eosinphils 0.2 thou/uL (0.0-0.7); #Lymphocytes 1.8 thou/uL (1.20-3.40); #Monocytes 0.9 thou/uL (0.11-0.59); #Neutrophils 5.9 thou/uL (1.40-6.50); %Basophils 0.4 % (0.0-1.0); %Eosinophils 2.7 % (0.0-10.0); %Lymphocytes 20.5 % (21.0-51.0); %Monocytes 9.7 % (0.0-10.0); %Neutrophils 66.7 % (42.0-75.0); Hemoglobin 10.1 g/dL (12.0-16.0); Mean Corpuscular HGB CONC 34.1 g/dL (32.0-36.0); Mean Corpuscular Hemoglobin 32.1 pg (27.0-31.0); Mean Corpuscular Volume 94.1 fL (78.0-98.0); Mean Platelet Volume 7.2 fL (7.4-10.4); Platelet Count 289 thou/uL (130-400); RBC Distribution Width 13.5 % (11.5-14.5); Red Blood Cell (RBC) Count 3.16 mill/uL (4.20-5.40); White Blood Cell (WBC) Count 8.9 thou/uL (4.8-10.8)
[2021-08-17 21:07] LABS: ALT (SGPT) 53 U/L (8-55); AST (SGOT) 35 U/L (5-34); Albumin 3.2 g/dL (3.4-4.8); Alkaline Phosphatase 79 U/L (40-110); Anion Gap 14 mmol/L (10-20); BUN (Urea Nitrogen) 15 mg/dL (9.8-20.1); Calc. Creatinine Clearance 0 mL/min (70-130); Calcium 8.7 mg/dL (7.8-10.44); Carbon Dioxide 24 mmol/L (23-31); Chloride 102 mmol/L (98-107); Globulin 2.8 g/dL (2.4-3.5); Glucose 108 mg/dL (83-110); Lipase 43 U/L (8-78); Sodium 136 mmol/L (136-145)
[2021-08-18 00:46] LABS: Bilirubin Negative (Negative); Blood, Urine Negative (Negative); Clarity Clear (Clear); Glucose, Urine (Dipstick) 300 mg/dL (Negative); Ketone, Urine Negative (Negative); Leukocyte Negative Leu/uL (Negative); Nitrite Negative (Negative); Protein, Urine (Dipstick) Negative (Neg-Trace); Specific Gravity, Urine 1.031 (1.002-1.036); Urobilinogen Normal mg/dL (Less than 2); pH, Urine 6.5 (5.0-9.0)
== END 2021-08-18 01:52 | disposition home or self-care (01) ==
LOC: ERS 19:53
DX: R10.30 Lower abdominal pain, unspecified (principal); Z79.899 Other long term (current) drug therapy; Z79.82 Long term (current) use of aspirin; I11.0 Hypertensive heart disease with heart failure; I50.9 Heart failure, unspecified; E03.9 Hypothyroidism, unspecified; Z86.73 Personal history of transient ischemic attack (TIA), and cerebral infarction without residual deficits
CPT/HCPCS: 36415; 51701; 74177; 80053; 81003; 82550; 83690; 85025; 94760; Q9967

== ENCOUNTER 2022-01-28 19:28 | Inpatient (IN) | payer MEDICARE, BC ==
[2022-01-28 20:17] LABS: #Basophils 0.1 thou/uL (0.0-0.2); #Eosinphils 0.2 thou/uL (0.0-0.7); #Lymphocytes 2.4 thou/uL (1.20-3.40); #Monocytes 0.8 thou/uL (0.11-0.59); #Neutrophils 5.1 thou/uL (1.40-6.50); %Eosinophils 1.8 % (0.0-10.0); %Monocytes 9.4 % (0.0-10.0); %Neutrophils 59.7 % (42.0-75.0); Hemoglobin 13.1 g/dL (12.0-16.0); Mean Corpuscular HGB CONC 33.7 g/dL (32.0-36.0); Mean Corpuscular Hemoglobin 31.2 pg (27.0-31.0); Mean Corpuscular Volume 92.8 fL (78.0-98.0); Mean Platelet Volume 6.9 fL (7.4-10.4); Platelet Count 282 thou/uL (130-400); RBC Distribution Width 13.2 % (11.5-14.5); Red Blood Cell (RBC) Count 4.19 mill/uL (4.20-5.40); White Blood Cell (WBC) Count 8.5 thou/uL (4.8-10.8)
[2022-01-28 20:40] LABS: Albumin 4.1 g/dL (3.4-4.8); Anion Gap 15 mmol/L (10-20); BUN (Urea Nitrogen) 20 mg/dL (9.8-20.1); Bilirubin, Total 0.3 mg/dL (0.2-1.2); Calc. Creatinine Clearance 0 mL/min (70-130); Calcium 9.7 mg/dL (7.8-10.44); Carbon Dioxide 28 mmol/L (23-31); Chloride 105 mmol/L (98-107); Glucose 102 mg/dL (83-110); Potassium 4.1 mmol/L (3.5-5.1); Protein, Total 6.8 g/dL (5.8-8.1); Sodium 144 mmol/L (136-145)
[2022-01-28 20:41] LABS: ALT (SGPT) 14 U/L (8-55); AST (SGOT) 16 U/L (5-34); Alkaline Phosphatase 92 U/L (40-110); CK (CPK) 32 U/L (29-168); Globulin 2.7 g/dL (2.4-3.5)
[2022-01-28 20:58] LABS: CKMB 0.6 ng/mL (0-6.6)
[2022-01-28 21:29] LABS: Bilirubin Negative (Negative); Blood, Urine Negative (Negative); Clarity Clear (Clear); Glucose, Urine (Dipstick) 50 mg/dL (Negative); Ketone, Urine Negative (Negative); Leukocyte 75 Leu/uL (Negative); Nitrite Negative (Negative); Protein, Urine (Dipstick) Negative (Neg-Trace); RBC/HPF 0-3 HPF (0-3); Renal Epithelial 0-3 HPF (None Seen); Specific Gravity, Urine 1.016 (1.002-1.036); Squamous Epithelial 0-3 HPF (0-3); Urobilinogen Normal mg/dL (Less than 2)
[2022-01-28 21:31] LABS: Bacteria/HPF 1+ HPF (None Seen)
[2022-01-28] MEDS ORDERED: Meropenem 2 GM in Sodium Chloride 0.9% 100 ML IVPB SCH (22:45)
[2022-01-29 00:42] LABS: Troponin I 0.039 ng/mL (< 0.028)
[2022-01-29 01:18] VITALS: BMI 31.8
[2022-01-29 03:13] LABS: Troponin I 0.034 ng/mL (< 0.028)
[2022-01-29] MEDS ORDERED: traMADol HCl 50 MG TAB PO PRN (08:18)
[2022-01-29] MEDS ORDERED: Acetaminophen 325 MG TAB PO PRN (08:19)
[2022-01-29] MEDS ORDERED: Senokot S 8.6-50 MG TAB PO PRN (08:19)
[2022-01-29] MEDS ORDERED: Bisacodyl 5 MG TAB PO PRN (08:19)
[2022-01-29] MEDS ORDERED: Acetaminophen 650 MG Suppository PR PRN (08:19)
[2022-01-29] MEDS ORDERED: Guaifenesin DM 100-10/5 ML UDCUP PO PRN (08:19)
[2022-01-29] MEDS ORDERED: hydrALAZINE 20 MG/ML VIAL SLOW IVP PRN (08:19)
[2022-01-29] MEDS ORDERED: Non-Formulary Item 1 EACH (Lisinopril [Lisinopril] 40 MG Tablet) PO SCH (09:00)
[2022-01-29] MEDS ORDERED: Non-Formulary Item 1 EACH (Quetiapine Fumarate [Seroquel] 50 MG Tablet) PO SCH (09:00)
[2022-01-29] MEDS: Aspirin 81 mg Enteric Coated Tablet PO SCH (09:13)
[2022-01-29] MEDS: Lisinopril 20 MG TAB PO SCH (09:14)
[2022-01-29] MEDS: Famotidine 20 MG TAB PO SCH (09:14)
[2022-01-29] MEDS: Escitalopram Oxalate 10 mg Tablet PO SCH (09:14)
[2022-01-29] MEDS: Polyethylene Glycol 3350 17 GM Packet PO SCH (09:15)
[2022-01-29] MEDS: Lorazepam 0.5 MG TAB PO SCH ×2 (09:15→19:43)
[2022-01-29 09:49] LABS: Cardiac Risk 8.2 (Less than 4.5); Cholesterol 262 mg/dl (< 200 Desired); HDL Cholesterol 32 mg/dL (>60 Neg Risk); LDL Cholesterol, Calculated 191 mg/dL; Magnesium 2.1 mg/dL (1.6-2.6); Triglycerides 197 mg/dL (Less than 150)
[2022-01-29] MEDS ORDERED: Nitrofurantoin Monohyd/M-Cryst 100 MG CAP PO SCH ×2 (10:00→10:15)
[2022-01-29 11:56] LABS: SARS-CoV-2 PCR by NAA Not Detected (NotDetected)
[2022-01-29] MEDS: Furosemide 40 MG/4 ML VIAL SLOW IVP SCH (15:59)
[2022-01-29] MEDS: Nitrofurantoin Monohyd/M-Cryst 100 MG CAP PO SCH (19:43)
[2022-01-30 04:42] LABS: #Eosinphils 0.4 thou/uL (0.0-0.7); #Lymphocytes 2.3 thou/uL (1.20-3.40); #Monocytes 0.7 thou/uL (0.11-0.59); #Neutrophils 4.7 thou/uL (1.40-6.50); %Basophils 0.5 % (0.0-1.0); %Eosinophils 5.4 % (0.0-10.0); %Lymphocytes 28.4 % (21.0-51.0); %Neutrophils 57.7 % (42.0-75.0); Hemoglobin 12.7 g/dL (12.0-16.0); Mean Corpuscular HGB CONC 33.5 g/dL (32.0-36.0); Mean Corpuscular Hemoglobin 31.6 pg (27.0-31.0); Mean Corpuscular Volume 94.5 fL (78.0-98.0); Mean Platelet Volume 6.8 fL (7.4-10.4); Platelet Count 247 thou/uL (130-400); RBC Distribution Width 13.6 % (11.5-14.5); Red Blood Cell (RBC) Count 4.02 mill/uL (4.20-5.40); White Blood Cell (WBC) Count 8.2 thou/uL (4.8-10.8)
[2022-01-30 05:06] LABS: ALT (SGPT) 14 U/L (8-55); AST (SGOT) 15 U/L (5-34); Albumin 3.6 g/dL (3.4-4.8); Alkaline Phosphatase 79 U/L (40-110); Anion Gap 14 mmol/L (10-20); BUN (Urea Nitrogen) 22 mg/dL (9.8-20.1); Bilirubin, Total 0.4 mg/dL (0.2-1.2); Calc. Creatinine Clearance 63 mL/min (70-130); Calcium 8.9 mg/dL (7.8-10.44); Carbon Dioxide 23 mmol/L (23-31); Chloride 107 mmol/L (98-107); Globulin 2.5 g/dL (2.4-3.5); Glucose 103 mg/dL (83-110); Potassium 3.8 mmol/L (3.5-5.1); Protein, Total 6.1 g/dL (5.8-8.1); Sodium 140 mmol/L (136-145)
[2022-01-30] MEDS: Furosemide 40 MG/4 ML VIAL SLOW IVP SCH ×2 (05:08→15:03)
[2022-01-30] MEDS: Lorazepam 0.5 MG TAB PO SCH (09:39)
[2022-01-30] MEDS: Famotidine 20 MG TAB PO SCH (09:42)
[2022-01-30] MEDS: Lisinopril 20 MG TAB PO SCH (09:42)
[2022-01-30] MEDS: Escitalopram Oxalate 10 mg Tablet PO SCH (09:42)
[2022-01-30] MEDS: Aspirin 81 mg Enteric Coated Tablet PO SCH (09:42)
[2022-01-30] MEDS: Polyethylene Glycol 3350 17 GM Packet PO SCH (09:43)
[2022-01-30] MEDS: Nitrofurantoin Monohyd/M-Cryst 100 MG CAP PO SCH (09:43)
[2022-01-30 11:32] VITALS: TEMP 97.6
[2022-01-30 12:01] VITALS: BP 124/69
== END 2022-01-30 15:50 | disposition home or self-care (01) | DRG 291 ==
LOC: ERS 19:28 → 2SW 23:36 → OBSVTOIN 01-30 11:14
PROVIDERS: ADMIT Student in an Organized Health Care Education/Training Program; ATTEND Internal Medicine
DX: I13.0 Hypertensive heart and chronic kidney disease with heart failure and stage 1 through stage 4 chronic kidney disease, or unspecified chronic kidney disease (principal); G92.9 Unspecified toxic encephalopathy; I50.33 Acute on chronic diastolic (congestive) heart failure; N17.9 Acute kidney failure, unspecified; N39.0 Urinary tract infection, site not specified; E86.0 Dehydration; Z20.822 Contact with and (suspected) exposure to COVID-19; E03.9 Hypothyroidism, unspecified; F03.90 Unspecified dementia, unspecified severity, without behavioral disturbance, psychotic disturbance, mood disturbance, and anxiety; M54.9 Dorsalgia, unspecified; N18.9 Chronic kidney disease, unspecified; F32.A Depression, unspecified; I50.9 Heart failure, unspecified; Z86.73 Personal history of transient ischemic attack (TIA), and cerebral infarction without residual deficits; Z88.0 Allergy status to penicillin; Z88.2 Allergy status to sulfonamides; Z79.82 Long term (current) use of aspirin; Z79.899 Other long term (current) drug therapy
CPT/HCPCS: 36415; 70450; 71045; 72125; 72128; 72131; 72170; 80053; 80061; 81003; 81015; 82550; 82553; 83735; 83880; 84443; 84484; 85025; 93005; 93306; 93880; 96374; 96375; 96376; G0378; J1940; J2185; J3490; U0003; U0005

== ENCOUNTER 2022-03-17 18:15 | Emergency (ER) | payer MEDICARE, BC ==
[2022-03-17 19:45] LABS: #Basophils 0.1 thou/uL (0.0-0.2); #Eosinphils 0.2 thou/uL (0.0-0.7); #Lymphocytes 1.6 thou/uL (1.20-3.40); #Monocytes 0.7 thou/uL (0.11-0.59); #Neutrophils 6.3 thou/uL (1.40-6.50); %Basophils 0.9 % (0.0-1.0); %Eosinophils 2.8 % (0.0-10.0); %Lymphocytes 18.2 % (21.0-51.0); %Monocytes 7.3 % (0.0-10.0); %Neutrophils 70.8 % (42.0-75.0); Hemoglobin 14.2 g/dL (12.0-16.0); Mean Corpuscular Hemoglobin 31.1 pg (27.0-31.0); Mean Corpuscular Volume 94.5 fL (78.0-98.0); Mean Platelet Volume 6.9 fL (7.4-10.4); Platelet Count 272 thou/uL (130-400); RBC Distribution Width 13.3 % (11.5-14.5); Red Blood Cell (RBC) Count 4.55 mill/uL (4.20-5.40); White Blood Cell (WBC) Count 8.9 thou/uL (4.8-10.8)
[2022-03-17] MEDS ORDERED: Lidocaine 4% Cream 5 GM TUBE w/ Tegaderm ONE (19:53)
[2022-03-17 20:11] LABS: ALT (SGPT) 14 U/L (8-55); AST (SGOT) 18 U/L (5-34); Albumin 4.2 g/dL (3.4-4.8); Alkaline Phosphatase 95 U/L (40-110); Anion Gap 14 mmol/L (10-20); BUN (Urea Nitrogen) 25 mg/dL (9.8-20.1); Bilirubin, Total 0.4 mg/dL (0.2-1.2); Calc. Creatinine Clearance 0 mL/min (70-130); Calcium 9.7 mg/dL (7.8-10.44); Carbon Dioxide 29 mmol/L (23-31); Chloride 103 mmol/L (98-107); Globulin 3.2 g/dL (2.4-3.5); Glucose 111 mg/dL (83-110); Potassium 4.1 mmol/L (3.5-5.1); Protein, Total 7.4 g/dL (5.8-8.1); Sodium 142 mmol/L (136-145)
[2022-03-17 20:23] LABS: Bilirubin Negative (Negative); Blood, Urine Negative (Negative); Clarity Clear (Clear); Glucose, Urine (Dipstick) 150 mg/dL (Negative); Ketone, Urine Negative (Negative); Leukocyte Negative Leu/uL (Negative); Nitrite Negative (Negative); Protein, Urine (Dipstick) Negative (Neg-Trace); Specific Gravity, Urine 1.018 (1.002-1.036); Urobilinogen Normal mg/dL (Less than 2); pH, Urine 5.5 (5.0-9.0)
== END 2022-03-17 21:42 | disposition home or self-care (01) ==
LOC: ERS 18:15
DX: S01.01XA Laceration without foreign body of scalp, initial encounter (principal); I11.0 Hypertensive heart disease with heart failure; I50.9 Heart failure, unspecified; E03.9 Hypothyroidism, unspecified; Z86.73 Personal history of transient ischemic attack (TIA), and cerebral infarction without residual deficits; Z79.82 Long term (current) use of aspirin; Z79.899 Other long term (current) drug therapy; W01.0XXA Fall on same level from slipping, tripping and stumbling without subsequent striking against object, initial encounter
CPT/HCPCS: 12001; 36415; 51701; 70450; 71045; 80053; 81003; 85025; 93005

== ENCOUNTER 2022-07-30 17:12 | Emergency (ER) | payer MEDICARE, BC ==
[2022-07-30 17:52] LABS: #Eosinphils 0.2 thou/uL (0.0-0.7); #Lymphocytes 2.4 thou/uL (1.20-3.40); #Monocytes 0.7 thou/uL (0.11-0.59); #Neutrophils 5.8 thou/uL (1.40-6.50); %Basophils 0.3 % (0.0-1.0); %Eosinophils 2.5 % (0.0-10.0); %Lymphocytes 26.3 % (21.0-51.0); %Monocytes 7.2 % (0.0-10.0); %Neutrophils 63.6 % (42.0-75.0); Hemoglobin 13.4 g/dL (12.0-16.0); Mean Corpuscular HGB CONC 32.5 g/dL (32.0-36.0); Mean Corpuscular Hemoglobin 30.9 pg (27.0-31.0); Mean Corpuscular Volume 95.1 fl (78.0-98.0); Mean Platelet Volume 7.9 fL (7.4-10.4); Platelet Count 216 thou/uL (130-400); Red Blood Cell (RBC) Count 4.33 mill/uL (4.20-5.40)
[2022-07-30 18:08] LABS: ALT (SGPT) 13 U/L (8-55); AST (SGOT) 15 U/L (5-34); Albumin 4.2 g/dL (3.4-4.8); Alkaline Phosphatase 94 U/L (40-110); Anion Gap 14 mmol/L (10-20); BUN (Urea Nitrogen) 17 mg/dL (9.8-20.1); Bilirubin, Total 0.3 mg/dL (0.2-1.2); Calc. Creatinine Clearance 0 mL/min (70-130); Calcium 9.8 mg/dL (7.8-10.44); Carbon Dioxide 26 mmol/L (23-31); Chloride 104 mmol/L (98-107); Estimated GFR 57; Globulin 3.1 g/dL (2.4-3.5); Glucose 115 mg/dL (83-110); Potassium 3.6 mmol/L (3.5-5.1); Protein, Total 7.3 g/dL (5.8-8.1); Sodium 140 mmol/L (136-145)
[2022-07-30 19:42] LABS: Bacteria/HPF 4+ HPF (None Seen); Bilirubin Negative (Negative); Blood, Urine Negative (Negative); Clarity Clear (Clear); Glucose, Urine (Dipstick) Normal (Negative); Ketone, Urine Negative (Negative); Leukocyte 250 Leu/uL (Negative); Nitrite Negative (Negative); Protein, Urine (Dipstick) Negative (Neg-Trace); RBC/HPF 0-3 HPF (0-3); Renal Epithelial 0-3 HPF (None Seen); Specific Gravity, Urine 1.019 (1.002-1.036); Squamous Epithelial 0-3 HPF (0-3); Urobilinogen Normal mg/dL (Less than 2); WBC/HPF 21-50 HPF (0-3)
[2022-07-30] MEDS ORDERED: cefTRIAXone\\ROCEPHIN 2 GM VIAL ONE (19:59)
== END 2022-07-30 23:24 | disposition home or self-care (01) ==
LOC: ERS 17:12
DX: S40.011A Contusion of right shoulder, initial encounter (principal); S70.01XA Contusion of right hip, initial encounter; N39.0 Urinary tract infection, site not specified; I11.0 Hypertensive heart disease with heart failure; I50.9 Heart failure, unspecified; E03.9 Hypothyroidism, unspecified; Z86.73 Personal history of transient ischemic attack (TIA), and cerebral infarction without residual deficits; W19.XXXA Unspecified fall, initial encounter
CPT/HCPCS: 36415; 51701; 70450; 71260; 72125; 72170; 74177; 80053; 81003; 81015; 85025; 87077; 87086; 87186; 96365; J0696; Q9967

== ENCOUNTER 2022-10-28 13:27 | Emergency (ER) | payer MEDICARE, BC ==
[2022-10-28] MEDS ORDERED: Lidocaine 1% w/Epinephrine 1:100K 20 ML VIAL ONE (14:25)
[2022-10-28 14:33] LABS: #Basophils 0.1 thou/uL (0.0-0.2); #Eosinphils 0.3 thou/uL (0.0-0.7); #Lymphocytes 1.2 thou/uL (1.20-3.40); #Monocytes 0.4 thou/uL (0.11-0.59); #Neutrophils 5.1 thou/uL (1.40-6.50); %Basophils 0.7 % (0.0-1.0); %Eosinophils 4.8 % (0.0-10.0); %Lymphocytes 17.3 % (21.0-51.0); %Neutrophils 71.2 % (42.0-75.0); Hemoglobin 13.8 g/dL (12.0-16.0); Mean Corpuscular HGB CONC 33.6 g/dL (32.0-36.0); Mean Corpuscular Hemoglobin 30.7 pg (27.0-31.0); Mean Corpuscular Volume 91.4 fl (78.0-98.0); Mean Platelet Volume 7.2 fL (7.4-10.4); Platelet Count 258 10x3/uL (130-400); RBC Distribution Width 12.4 % (11.5-14.5); Red Blood Cell (RBC) Count 4.49 mill/uL (4.20-5.40); White Blood Cell (WBC) Count 7.1 10x3/uL (4.8-10.8)
[2022-10-28 14:50] LABS: INR-International Normal Ratio 0.9; PTT 29.1 sec (22.9-36.1); Prothrombin Time 12.9 sec (12.0-14.7)
[2022-10-28 14:57] LABS: ALT (SGPT) 22 U/L (8-55); AST (SGOT) 20 U/L (5-34); Albumin 3.7 g/dL (3.4-4.8); Alkaline Phosphatase 112 U/L (40-110); Anion Gap 13 mmol/L (10-20); BUN (Urea Nitrogen) 17 mg/dL (9.8-20.1); Bilirubin, Total 0.5 mg/dL (0.2-1.2); CK (CPK) 13 U/L (29-168); Calc. Creatinine Clearance 0 mL/min (70-130); Calcium 9.6 mg/dL (7.8-10.44); Carbon Dioxide 31 mmol/L (23-31); Chloride 102 mmol/L (98-107); Estimated GFR 62; Globulin 3.2 g/dL (2.4-3.5); Glucose 114 mg/dL (83-110); Potassium 3.6 mmol/L (3.5-5.1); Protein, Total 6.9 g/dL (5.8-8.1); Sodium 142 mmol/L (136-145)
[2022-10-28 15:43] LABS: Bilirubin Negative (Negative); Blood, Urine Negative (Negative); Clarity Clear (Clear); Glucose, Urine (Dipstick) 30 mg/dL (Negative); Ketone, Urine Negative (Negative); Leukocyte Negative Leu/uL (Negative); Nitrite Negative (Negative); Protein, Urine (Dipstick) Negative (Neg-Trace); Specific Gravity, Urine 1.015 (1.002-1.036); Urobilinogen Normal mg/dL (Less than 2); pH, Urine 6.5 (5.0-9.0)
[2022-10-28] MEDS ORDERED: Bacitracin 1 PK ONE (16:49)
== END 2022-10-28 17:13 | disposition home or self-care (01) ==
LOC: ERS 13:27
DX: S01.81XA Laceration without foreign body of other part of head, initial encounter (principal); I10 Essential (primary) hypertension; I50.9 Heart failure, unspecified; E03.9 Hypothyroidism, unspecified; W19.XXXA Unspecified fall, initial encounter; Z23 Encounter for immunization; Z86.73 Personal history of transient ischemic attack (TIA), and cerebral infarction without residual deficits
CPT/HCPCS: 12013; 36415; 70450; 71045; 72125; 80053; 81003; 82550; 84484; 85025; 85610; 85730; 93005

== ENCOUNTER 2022-11-02 09:22 | Emergency (ER) | payer MEDICARE, BC ==
[2022-11-02] MEDS ORDERED: Fentanyl 100 MCG/2 ML VIAL ONE (10:14)
[2022-11-02 10:16] LABS: #Eosinphils 0.3 thou/uL (0.0-0.7); #Lymphocytes 1.7 thou/uL (1.20-3.40); #Monocytes 0.5 thou/uL (0.11-0.59); #Neutrophils 4.9 thou/uL (1.40-6.50); %Basophils 0.6 % (0.0-1.0); %Eosinophils 3.9 % (0.0-10.0); %Lymphocytes 23.3 % (21.0-51.0); %Neutrophils 66.1 % (42.0-75.0); Hemoglobin 13.5 g/dL (12.0-16.0); Mean Corpuscular Hemoglobin 30.5 pg (27.0-31.0); Mean Corpuscular Volume 92.6 fl (78.0-98.0); Mean Platelet Volume 7.4 fL (7.4-10.4); Platelet Count 245 10x3/uL (130-400); RBC Distribution Width 12.7 % (11.5-14.5); Red Blood Cell (RBC) Count 4.41 mill/uL (4.20-5.40); White Blood Cell (WBC) Count 7.4 10x3/uL (4.8-10.8)
[2022-11-02] MEDS ORDERED: Lidocaine 1% w/Epinephrine 1:100K 20 ML VIAL ONE (10:35)
[2022-11-02 10:36] LABS: ALT (SGPT) 16 U/L (8-55); AST (SGOT) 13 U/L (5-34); Albumin 3.6 g/dL (3.4-4.8); Alkaline Phosphatase 97 U/L (40-110); Anion Gap 13 mmol/L (10-20); BUN (Urea Nitrogen) 22 mg/dL (9.8-20.1); Bilirubin, Total 0.3 mg/dL (0.2-1.2); Calc. Creatinine Clearance 0 mL/min (70-130); Calcium 9.4 mg/dL (7.8-10.44); Carbon Dioxide 28 mmol/L (23-31); Chloride 104 mmol/L (98-107); Estimated GFR 49; Globulin 2.9 g/dL (2.4-3.5); Glucose 129 mg/dL (83-110); Potassium 3.9 mmol/L (3.5-5.1); Protein, Total 6.5 g/dL (5.8-8.1); Sodium 141 mmol/L (136-145)
[2022-11-02] MEDS ORDERED: Bacitracin 1 PK ONE (11:24)
== END 2022-11-02 12:35 ==
LOC: ERS 09:22
DX: S01.01XA Laceration without foreign body of scalp, initial encounter (principal); I11.0 Hypertensive heart disease with heart failure; I50.9 Heart failure, unspecified; E03.9 Hypothyroidism, unspecified; Z79.82 Long term (current) use of aspirin; Z79.899 Other long term (current) drug therapy; W19.XXXA Unspecified fall, initial encounter
CPT/HCPCS: 12013; 70450; 72125; 80053; 85025; 93005; 96374; J3010

== ENCOUNTER 2023-01-25 00:22 | Emergency (ER) | payer MEDICARE, BC ==
[2023-01-25 00:58] LABS: #Eosinphils 0.3 thou/uL (0.0-0.7); #Monocytes 0.6 thou/uL (0.11-0.59); #Neutrophils 6.5 thou/uL (1.40-6.50); %Basophils 0.3 % (0.0-1.0); %Eosinophils 2.9 % (0.0-10.0); %Lymphocytes 21.3 % (21.0-51.0); %Monocytes 5.9 % (0.0-10.0); %Neutrophils 69.6 % (42.0-75.0); Mean Corpuscular HGB CONC 34.2 g/dL (32.0-36.0); Mean Corpuscular Hemoglobin 31.4 pg (27.0-31.0); Mean Platelet Volume 7.6 fL (7.4-10.4); Platelet Count 249 10x3/uL (130-400); RBC Distribution Width 13.1 % (11.5-14.5); Red Blood Cell (RBC) Count 4.46 mill/uL (4.20-5.40); White Blood Cell (WBC) Count 9.4 10x3/uL (4.8-10.8)
[2023-01-25 01:11] LABS: PTT 28.4 sec (22.9-36.1); Prothrombin Time 13.2 sec (12.0-14.7)
[2023-01-25 01:20] LABS: ALT (SGPT) 17 U/L (8-55); AST (SGOT) 22 U/L (5-34); Albumin 4.1 g/dL (3.4-4.8); Alkaline Phosphatase 100 U/L (40-110); Anion Gap 16 mmol/L (10-20); BUN (Urea Nitrogen) 30 mg/dL (9.8-20.1); Bilirubin, Total 0.2 mg/dL (0.2-1.2); Calc. Creatinine Clearance 0 mL/min (70-130); Carbon Dioxide 27 mmol/L (23-31); Chloride 106 mmol/L (98-107); Estimated GFR 38; Globulin 3.2 g/dL (2.4-3.5); Glucose 140 mg/dL (83-110); Potassium 4.1 mmol/L (3.5-5.1); Protein, Total 7.3 g/dL (5.8-8.1); Sodium 145 mmol/L (136-145)
[2023-01-25 02:00] LABS: Bacteria/HPF None Seen HPF (None Seen); Bilirubin Negative (Negative); Blood, Urine Negative (Negative); Clarity Clear (Clear); Glucose, Urine (Dipstick) 100 mg/dL (Negative); Ketone, Urine Negative (Negative); Leukocyte 25 Leu/uL (Negative); Nitrite Negative (Negative); Protein, Urine (Dipstick) Negative (Neg-Trace); RBC/HPF 0-3 HPF (0-3); Specific Gravity, Urine 1.014 (1.002-1.036); Squamous Epithelial None Seen HPF (0-3); Urobilinogen Normal mg/dL (Less than 2)
== END 2023-01-25 03:22 | disposition home or self-care (01) ==
LOC: ERS 00:22
DX: S39.012A Strain of muscle, fascia and tendon of lower back, initial encounter (principal); I11.0 Hypertensive heart disease with heart failure; I50.9 Heart failure, unspecified; E03.9 Hypothyroidism, unspecified; Z86.73 Personal history of transient ischemic attack (TIA), and cerebral infarction without residual deficits; Z79.82 Long term (current) use of aspirin; W19.XXXA Unspecified fall, initial encounter; Z79.899 Other long term (current) drug therapy
CPT/HCPCS: 70450; 71045; 72100; 72125; 72170; 80053; 81003; 81015; 85025; 85610; 85730; 87086; 93005

== ENCOUNTER 2023-01-25 09:22 | Emergency (ER) | payer MEDICARE, BC ==
[2023-01-25] MEDS ORDERED: Acetaminophen/Codeine 30-300mg Tablet ONE (10:59)
== END 2023-01-25 11:30 ==
LOC: ERS 09:22
DX: S32.9XXA Fracture of unspecified parts of lumbosacral spine and pelvis, initial encounter for closed fracture (principal); I11.0 Hypertensive heart disease with heart failure; I50.9 Heart failure, unspecified; E03.9 Hypothyroidism, unspecified; W19.XXXA Unspecified fall, initial encounter; Z86.73 Personal history of transient ischemic attack (TIA), and cerebral infarction without residual deficits; S39.012A Strain of muscle, fascia and tendon of lower back, initial encounter; Z79.82 Long term (current) use of aspirin; Z79.899 Other long term (current) drug therapy
CPT/HCPCS: 70450; 71045; 72100; 72125; 72170; 72192; 80053; 81003; 81015; 85025; 85610; 85730; 87086; 93005

== ENCOUNTER 2023-04-06 12:00 | Emergency (ER) | payer MEDICARE, BC ==
[2023-04-06] MEDS ORDERED: fentaNYL 50 mcg/mL 1 mL Vial ONE (12:30)
[2023-04-06 13:13] LABS: #Basophils 0.1 thou/uL (0.0-0.2); #Eosinphils 0.3 thou/uL (0.0-0.7); #Monocytes 0.5 thou/uL (0.11-0.59); #Neutrophils 4.4 thou/uL (1.40-6.50); %Basophils 0.7 % (0.0-1.0); %Eosinophils 3.6 % (0.0-10.0); %Lymphocytes 24.4 % (21.0-51.0); Hemoglobin 12.7 g/dL (12.0-16.0); Mean Corpuscular HGB CONC 32.9 g/dL (32.0-36.0); Mean Corpuscular Hemoglobin 29.5 pg (27.0-31.0); Mean Corpuscular Volume 89.8 fl (78.0-98.0); Mean Platelet Volume 9.4 fL (7.4-10.4); Platelet Count 266 10x3/uL (130-400); RBC Distribution Width 14.8 % (11.5-14.5); White Blood Cell (WBC) Count 6.9 10x3/uL (4.8-10.8)
[2023-04-06 13:40] LABS: ALT (SGPT) 12 U/L (8-55); AST (SGOT) 15 U/L (5-34); Albumin 3.8 g/dL (3.4-4.8); Alkaline Phosphatase 108 U/L (40-110); Anion Gap 15 mmol/L (10-20); BUN (Urea Nitrogen) 31 mg/dL (9.8-20.1); Bilirubin, Total 0.4 mg/dL (0.2-1.2); Calc. Creatinine Clearance 0 mL/min (70-130); Calcium 9.8 mg/dL (7.8-10.44); Carbon Dioxide 29 mmol/L (23-31); Chloride 106 mmol/L (98-107); Estimated GFR 28; Globulin 3.2 g/dL (2.4-3.5); Glucose 97 mg/dL (83-110); Potassium 4.3 mmol/L (3.5-5.1); Sodium 146 mmol/L (136-145)
== END 2023-04-06 16:10 | disposition home or self-care (01) ==
LOC: ERS 12:00
DX: N17.9 Acute kidney failure, unspecified (principal); W19.XXXA Unspecified fall, initial encounter
CPT/HCPCS: 70450; 71045; 72125; 72170; 74176; 80053; 85025; 86850; 86900; 86901; J3010; 36415; 93005; 96374